=== PATIENT | male | born 1930 | race American Indian/Alaskan Native ===

== ENCOUNTER 2017-10-02 15:43 | Inpatient (IN) | payer MEDICARE, OTHER ==
[2017-10-02 15:43] VITALS: BMI 26.2
[2017-10-02 16:41] LABS: VENOUS BLOOD GAS BASE EXCESS 2.6 mmol/L (0.0-2.0); VENOUS BLOOD GAS PCO2 41 mmHg (40-60); VENOUS BLOOD GAS PO2 56 mm/Hg (30-55); VENOUS BLOOD PH 7.43 (7.32-7.43)
[2017-10-02 16:44] LABS: BASO % 0.3 % (0.0-2.0); EOS # 0.1 K/uL (0.0-0.7); EOS % 1.1 % (0.0-4.0); HEMOGLOBIN 13.2 g/dL (12.0-18.0); LYMPH # 1.1 K/uL (1.0-4.3); LYMPH % 8.8 % (20.0-40.0); MEAN CORPUSCULAR HGB CONC 33.8 g/dL (33.0-37.0); MEAN PLATELET VOLUME 8.2 fL (7.2-11.7); MONO # 0.5 K/uL (0.0-0.8); MONO % 4.5 % (0.0-10.0); NEUT # 10.5 K/uL (1.8-7.0); NEUT % 85.3 % (50.0-75.0); NRBC % 0.1 % (0.0-2.0); PLATELET COUNT 92 K/uL (130-400); RBC 4.25 Mil/uL (4.40-5.90); RED CELL DISTRIBUTION WIDTH 13.3 % (11.5-14.5)
[2017-10-02 16:47] LABS: WHITE BLOOD COUNT 12.3 K/uL (4.8-10.8)
[2017-10-02 16:48] LABS: MEAN CELL VOLUME 91.6 fL (80.0-94.0)
[2017-10-02 16:54] LABS: CALCIUM 9.1 mg/dl (8.6-10.4); GFR AFRICAN-AMERICAN > 60; GFR NON-AFRICAN AMERICAN > 60
--- NOTE | 2017-10-02 17:04 | RAD ---
HISTORY: chest pain COMPARISON: Chest x-ray performed 12/24/14 TECHNIQUE: Chest, one view. FINDINGS: Examination limited by habitus. LUNGS: Right hilar prominence. Upper lobe granulomatous changes. Mild pulmonary venous congestion. Please note that chest x-ray has limited sensitivity for the detection of pulmonary masses. PLEURA: No significant pleural effusion identified. No definite pneumothorax . CARDIOVASCULAR: Marked enlargement of the cardiac silhouette may reflect cardiomegaly or pericardial effusion. OSSEOUS STRUCTURES: Degenerative changes. Osseous demineralization. VISUALIZED UPPER ABDOMEN: Unremarkable. OTHER FINDINGS: None. IMPRESSION: Marked enlargement of the cardiac silhouette may reflect cardiomegaly or pericardial effusion. Correlate clinically. Right hilar prominence. Upper lobe granulomatous changes. Mild pulmonary venous congestion.
--- NOTE | 2017-10-02 17:09 | C.PDOC ---
History Of Present Illness 87 y/o male brought to ED by his daughter. Daughter reports patient has not been feeling well all day and experienced minimal PO intake. Pt took all his medications this morning. Daughter also reports that today pt was coughing with phlegm. Patient denies fever, headache, chest pain, SOB or any other pain. Chief Complaint (Nursing): Weakness/Neurological Deficit History Per: Patient, Family (daughter) History/Exam Limitations: no limitations Onset/Duration Of Symptoms: Hrs Current Symptoms Are (Timing): Still Present Seizure Or Post-ictal Symptoms: None Fall Associated With With Symptoms: No Recent travel outside of the [place]: No - Symptoms Of CVA Associated Symptoms: denies: Impaired Speech, Seizure Activity, New Vision Deficit(Left), New Vision Deficit(Right), Decreased Ability To Walk, New Confusion Recent Head Trauma: No Past Medical History Reviewed: Historical Data, Nursing Documentation, Vital Signs Vital Signs: Last Vital Signs Temp 98 F 10/02/17 23:05 Pulse 79 10/02/17 23:05 Resp 18 10/02/17 23:05 BP 150/86 10/02/17 23:05 Pulse Ox 98 10/02/17 23:05 - Medical History PMH: Arthritis, Atrial Fibrillation, Benign Prostatic Hyperplasia, CHF, Diverticulitis, HTN, Hypercholesterolemia, Chronic Kidney Disease - [facility] Procedures CATARAC PHACOEMULS/ASPIR (08/17/13) COLONOSCOPY (12/09/13) CORONAR ARTERIOGR-2 CATH (09/08/02) ENDOSCOP DEST OF OTH LESION OR TISU OF LRG INTESTN (12/09/13) INSERT LENS AT CATAR EXT (08/17/13) LEFT HEART CARDIAC CATH (09/08/02) LT HEART ANGIOCARDIOGRAM (09/08/02) OTHER LOCAL DESTRUC SKIN (01/12/13) PACKED CELL TRANSFUSION (12/09/13) SERUM TRANSFUSION NEC (12/09/13) TETANUS TOXOID ADMINIST (12/24/14) VACCINATION NEC (12/09/13) Family History: States: No Known Family Hx - Social History Hx Tobacco Use: Yes Hx Alcohol Use: No Hx Substance Use: No - Immunization History Hx Tetanus Toxoid Vaccination: No Hx Influenza Vaccination: Yes (04/2014) Hx Pneumococcal Vaccination: Yes (2016) Review Of Systems Constitutional: Positive for: Weakness. Negative for: Fever, Chills Cardiovascular: Negative for: Chest Pain, Palpitations Respiratory: Positive for: Cough (with phlegm ). Negative for: Shortness of Breath Gastrointestinal: Positive for: Other (minimal PO intake ). Negative for: Nausea, Vomiting, Abdominal Pain, Diarrhea Neurological: Negative for: Weakness, Numbness Physical Exam - Physical Exam Appears: Non-toxic, Other (thin) Skin: Normal Color, Warm, Dry Head: Atraumatic, Normacephalic Eye(s): bilateral: Normal Inspection Oral Mucosa: Moist Neck: Supple Chest: Symmetrical, No Tenderness Cardiovascular: Rhythm Irregular Respiratory: No Decreased Breath Sounds, No Rales, Rhonchi (bilaterally; left greater than right ), No Wheezing Gastrointestinal/Abdominal: Soft, No Tenderness, No Distention, No Guarding, No Rebound Extremity: Normal ROM, No Tenderness, No Pedal Edema, No Calf Tenderness Extremity: Bilateral: Normal Color And Temperature, Normal ROM Neurological/Psych: Oriented x3, Normal Speech, Normal Cognition, Other (no focal deficits) ED Course And Treatment - Laboratory Results Result Diagrams: 10/02/17 16:36 10/02/17 16:36 O2 Sat by Pulse Oximetry: 80 (RA) - Other Rad CXR X-Ray: Viewed By Me, Read By Radiologist Interpretation: HISTORY: chest pain. COMPARISON: Chest x-ray performed . TECHNIQUE: Chest, one view. FINDINGS: Examination limited by habitus. LUNGS: Right hilar prominence. Upper lobe granulomatous changes. Mild pulmonary venous congestion. Please note that chest x-ray has limited sensitivity for the detection of pulmonary masses. PLEURA: No significant pleural effusion identified. No definite pneumothorax . CARDIOVASCULAR: Marked enlargement of the cardiac silhouette may reflect cardiomegaly or pericardial effusion. OSSEOUS STRUCTURES: Degenerative changes. Osseous demineralization. VISUALIZED UPPER ABDOMEN: Unremarkable. OTHER FINDINGS: None. IMPRESSION: Marked enlargement of the cardiac silhouette may reflect cardiomegaly or pericardial effusion. Correlate clinically. Right hilar prominence. Upper lobe granulomatous changes. Mild pulmonary venous congestion. Progress Note: Spoke with about patient and reviewd all findings including the elevated troponin. Pt is placed on antibiotics, asprin, lasix, and heparin drip. Pt is readmitted to telemetry unit. Family is aware. Critical Care Time - Critical Care Note Total Time (in mins): 45 Documented critical care: time excludes all time spent performing seperately billable procedures. Medical Decision Making Medical Decision Making: Ordered VBG, EKG, blood work, CXR, blood culture, flu AB swab, and urinalysis. Administered Tylenol. EKG result: Afib at 79 bpm LAFB Disposition - Disposition Disposition: HOSPITALIZED Disposition Time: 17:15 Condition: GUARDED - Clinical Impression Clinical Impression: Community acquired pneumonia, NSTEMI (non-ST elevated myocardial infarction) - Scribe Statement The provider has reviewed the documentation as recorded by the Scriballen Matute All medical record entries made by the Scribe were at my direction and personally dictated by me. I have reviewed the chart and agree that the record accurately reflects my personal performance of the history, physical exam, medical decision making, and the department course for this patient. I have also personally directed, reviewed, and agree with the discharge instructions and disposition.
[2017-10-02 17:12] LABS: ALB/GLOB RATIO 0.9 (1.0-2.1); ALT/SGPT 20 U/L (21-72); AST/SGOT 54 U/L (17-59); B-TYPE NATRIURETIC PEPTIDE 4400 pg/mL (0-900); BLOOD UREA NITROGEN 22 mg/dL (9-20)
[2017-10-02] MEDS ORDERED: Azithromycin 500 MG in Sodium Chloride 0.9% 250 ML IVPB STA (17:30)
[2017-10-02] MEDS ORDERED: Heparin25000 units/250ml 1/2NS 25,000 UNITS/250 ML BAG IV ONE (17:31)
[2017-10-02 18:28] LABS: BANDS 1 % (0-2); LYMPHOCYTE 10 % (20-40); MONOCYTE 1 % (0-10); NEUTROPHIL 88 % (50-75); TOTAL CELLS COUNTED 100
[2017-10-02 18:29] LABS: PLATELET ESTIMATE DECREASED (NORMAL)
[2017-10-02] MEDS ORDERED: Nitroglycerin 2% Ointment Foilpak UD TOP PRN (18:46)
[2017-10-02] MEDS ORDERED: cefTRIAXone IV 1 gm in Dextros 50 ML IVPB ONE (18:48)
[2017-10-02 18:57] LABS: INR 1.4; PROTHROMBIN TIME 16.2 SECONDS (9.7-12.2)
[2017-10-02] MEDS ORDERED: cefTRIAXone IV 1 gm in Dextros 50 ML IVPB STA (19:03)
[2017-10-02 19:06] LABS: SQUAMOUS EPITHIAL < 1 /hpf (0-5); URINE BACTERIA RARE (<OCC); URINE BILIRUBIN NEGATIVE (NEGATIVE); URINE BLOOD 3+ (NEGATIVE); URINE CLARITY Hazy (Clear); URINE COLOR Yellow (YELLOW); URINE GLUCOSE (UA) NORMAL (Normal); URINE LEUKOCYTE ESTERASE NEG Leu/uL (Negative); URINE NITRATE NEGATIVE (NEGATIVE); URINE PROTEIN 3+ mg/dL (NEGATIVE); URINE UROBILINOGEN NORMAL mg/dL (0.2-1.0)
[2017-10-02] MEDS ORDERED: Heparin25000 units/250ml 1/2NS 25,000 UNITS/250 ML BAG IV PRN (19:13)
--- NOTE | 2017-10-02 22:04 | CP.PCM.CON ---
History of Present Illness - History of Present Illness History of Present Illness: 87 y/o male with h/o Atrial Fibrillation, CHF, Diverticulitis, HTN, Hypercholesterolemia, Benign Prostatic Hyperplasia,arthritis brought to ED by his daughter. patient had fallen coming down stairs yesterday and has been feeling weak since then with poor oral intake.patient c/o cough with phlegm but denies difficulty breathing or chest pain.He states that he had a fever yesterday.Denies chills. Pt took all his medications this morning. In ER troponin level elevated at 1.8,started on IV heparin history from patient and chart L Review of Systems - Constitutional Constitutional: Fatigue, Fever, Weakness. absent: Chills - EENT Eyes: absent: Discharge, Itchy Eyes Nose/Mouth/Throat: absent: Nasal Congestion, Sore Throat, Neck Pain - Cardiovascular Cardiovascular: absent: Chest Pain, Dyspnea, Edema, Palpitations, Rapid Heart Rate, Syncope - Respiratory Respiratory: Cough, Excessive Mucous Production. absent: Dyspnea, Wheezing - Gastrointestinal Gastrointestinal: absent: Abdominal Pain, Change in Bowel Habits, Nausea, Vomiting - Genitourinary Genitourinary: absent: Urinary Frequency - Musculoskeletal Musculoskeletal: absent: Numbness, Radiating Pain into Limb - Integumentary Integumentary: absent: Pruritus, Rash - Neurological Neurological: absent: Abnormal Movements, Headaches, Tremor - Endocrine Endocrine: absent: Polydipsia, Polyuria - Hematologic/Lymphatic Hematologic: absent: Easy Bleeding Past Patient History - Infectious Disease Hx of Infectious Diseases: None - Past Medical History & Family History Past Medical History?: Yes - Past Social History Smoking Status: Heavy Smoker > 10 Cigarettes Daily Drugs: Denies Home Situation {Lives}: With Family - CARDIAC Hx Atrial Fibrillation: Yes Hx Congestive Heart Failure: Yes Hx Hypercholesterolemia: Yes Hx Hypertension: Yes - PULMONARY Hx Respiratory Disorders: No - HEENT Hx Cataracts: Yes (left eye surgery 2012) - RENAL Hx Chronic Kidney Disease: Yes - MUSCULOSKELETAL/RHEUMATOLOGICAL Hx Arthritis: Yes - GASTROINTESTINAL Hx Diverticulitis: Yes - GENITOURINARY/GYNECOLOGICAL Hx Urinary Tract Infection: Yes Other/Comment: BPH - PSYCHIATRIC Hx Substance Use: No - SURGICAL HISTORY Hx Cataract Extraction: Yes (2012) Hx Cardiac Catheterization: Yes (2002) - ANESTHESIA Hx Anesthesia: Yes Hx Anesthesia Reactions: No Meds Allergies/Adverse Reactions: Allergies Allergy/AdvReac Type Severity Reaction Status Date / Time No Known Allergies Allergy Verified 10/02/17 16:09 - Medications Medications: Current Medications Aspirin (Ecotrin) 325 mg PO DAILY TANVIR Carvedilol (Coreg) 6.25 mg PO BID TANVIR Furosemide (Lasix) 40 mg IVP Q12 [facility] Heparin Sodium/Sodium Chloride (Heparin 59488 Units/250ml 1/2 Normal Saline) 25 ,000 units in 250 mls @ 8.655 mls/hr IV .Q24H PRN; 12 UNITS/KG/HR PRN Reason: Protocol Losartan Potassium (Cozaar) 50 mg PO DAILY [facility] Nitroglycerin (Nitro-Bid 2% Oint) 1 ea TOP Q6 PRN PRN Reason: chest pain Physical Exam - Constitutional Appears: Non-toxic, No Acute Distress - Head Exam Head Exam: ATRAUMATIC, NORMAL INSPECTION, NORMOCEPHALIC - Eye Exam Eye Exam: EOMI, PERRL. absent: Periorbital swelling, Scleral icterus Pupil Exam: NORMAL ACCOMODATION - ENT Exam ENT Exam: Mucous Membranes Moist, Normal Exam - Neck Exam Neck exam: Positive for: Normal Inspection. Negative for: Lymphadenopathy - Respiratory Exam Respiratory Exam: NORMAL BREATHING PATTERN. absent: Accessory Muscle Use, Chest Wall Tenderness, Rales, Rhonchi, Wheezes Additional comments: decreased air entry in bases - Cardiovascular Exam Cardiovascular Exam: Irregular Rhythm, Systolic Murmur. absent: JVD - GI/Abdominal Exam GI & Abdominal Exam: Normal Bowel Sounds, Soft. absent: Distended, Tenderness - Rectal Exam Rectal Exam: Deferred - Extremities Exam Extremities exam: Negative for: calf tenderness Additional comments: bilateral trace lower leg edema - Back Exam Back exam: NORMAL INSPECTION - Neurological Exam Neurological exam: Oriented x3 - Skin Skin Exam: Intact, Normal Color, Warm Results - Vital Signs Recent Vital Signs: Last Vital Signs Temp 98.6 F 10/02/17 21:05 Pulse 87 10/02/17 21:05 Resp 22 10/02/17 21:05 BP 151/87 H 10/02/17 21:05 Pulse Ox 92 L 10/02/17 21:05 - Labs Result Diagrams: 10/02/17 16:36 10/02/17 16:36 Labs: Laboratory Results - last 24 hr 10/02/17 10/02/17 10/02/17 16:29 16:36 16:36 WBC 12.3 H D RBC 4.25 L Hgb 13.2 Hct 38.9 MCV 91.6 D MCH 31.0 MCHC 33.8 RDW 13.3 Plt Count 92 L MPV 8.2 Neut % (Auto) 85.3 H Lymph % (Auto) 8.8 L [place] % (Auto) 4.5 Eos % (Auto) 1.1 Baso % (Auto) 0.3 Neut # (Auto) 10.5 H Lymph # (Auto) 1.1 [place] # (Auto) 0.5 Eos # (Auto) 0.1 Baso # (Auto) 0.0 Neutrophils % (Manual) 88 H Band Neutrophils % 1 Lymphocytes % (Manual) 10 L Monocytes % (Manual) 1 Platelet Estimate Decreased L PT INR APTT pO2 VBG pH VBG pCO2 VBG HCO3 VBG Total CO2 VBG O2 Sat (Calc) VBG Base Excess VBG Potassium Glucose Lactate Sodium 137 Potassium 4.3 Chloride 100 Carbon Dioxide 29 Anion Gap 13 BUN 22 H Creatinine 0.9 Est GFR ( Amer) > 60 Est GFR (Non-Af Amer) > 60 POC Glucose (mg/dL) Random Glucose 104 Calcium 9.1 Total Bilirubin 2.5 H AST 54 ALT 20 L D Alkaline Phosphatase 52 Troponin I 1.8100 H* NT-Pro-B Natriuret Pep 4400 H Total Protein 8.6 H Albumin 4.0 Globulin 4.6 H Albumin/Globulin Ratio 0.9 L Venous Blood Potassium Urine Color Urine Clarity Urine pH Ur Specific [place] Urine Protein Urine Glucose (UA) Urine Ketones Urine Blood Urine Nitrate Urine Bilirubin Urine Urobilinogen Ur Leukocyte Esterase Urine WBC (Auto) Urine RBC (Auto) Ur Squamous Epith Cells Urine Bacteria Influenza Typ A,B (EIA) Negative for flu a/b Blood Type Antibody Screen 10/02/17 10/02/17 10/02/17 16:36 16:38 18:45 WBC RBC Hgb Hct MCV MCH MCHC RDW Plt Count MPV Neut % (Auto) Lymph % (Auto) [place] % (Auto) Eos % (Auto) Baso % (Auto) Neut # (Auto) Lymph # (Auto) [place] # (Auto) Eos # (Auto) Baso # (Auto) Neutrophils % (Manual) Band Neutrophils % Lymphocytes % (Manual) Monocytes % (Manual) Platelet Estimate PT 16.2 H INR 1.4 APTT 31 pO2 56 H VBG pH 7.43 VBG pCO2 41 VBG HCO3 26.7 VBG Total CO2 28.5 H VBG O2 Sat (Calc) 92.1 H VBG Base Excess 2.6 H VBG Potassium 2.8 L Glucose 96 Lactate 1.2 Sodium 143.0 Potassium Chloride 112.0 H Carbon Dioxide Anion Gap BUN Creatinine Est GFR ( Amer) Est GFR (Non-Af Amer) POC Glucose (mg/dL) 106 Random Glucose Calcium Total Bilirubin AST ALT Alkaline Phosphatase Troponin I NT-Pro-B Natriuret Pep Total Protein Albumin Globulin Albumin/Globulin Ratio Venous Blood Potassium 2.8 L Urine Color Urine Clarity Urine pH Ur Specific [place] Urine Protein Urine Glucose (UA) Urine Ketones Urine Blood Urine Nitrate Urine Bilirubin Urine Urobilinogen Ur Leukocyte Esterase Urine WBC (Auto) Urine RBC (Auto) Ur Squamous Epith Cells Urine Bacteria Influenza Typ A,B (EIA) Blood Type Antibody Screen 10/02/17 10/02/17 18:45 19:06 WBC RBC Hgb Hct MCV MCH MCHC RDW Plt Count MPV Neut % (Auto) Lymph % (Auto) [place] % (Auto) Eos % (Auto) Baso % (Auto) Neut # (Auto) Lymph # (Auto) [place] # (Auto) Eos # (Auto) Baso # (Auto) Neutrophils % (Manual) Band Neutrophils % Lymphocytes % (Manual) Monocytes % (Manual) Platelet Estimate PT INR APTT pO2 VBG pH VBG pCO2 VBG HCO3 VBG Total CO2 VBG O2 Sat (Calc) VBG Base Excess VBG Potassium Glucose Lactate Sodium Potassium Chloride Carbon Dioxide Anion Gap BUN Creatinine Est GFR ( Amer) Est GFR (Non-Af Amer) POC Glucose (mg/dL) Random Glucose Calcium Total Bilirubin AST ALT Alkaline Phosphatase Troponin I NT-Pro-B Natriuret Pep Total Protein Albumin Globulin Albumin/Globulin Ratio Venous Blood Potassium Urine Color Yellow Urine Clarity Hazy Urine pH 5.0 Ur Specific [place] 1.022 Urine Protein 3+ H Urine Glucose (UA) Normal Urine Ketones Trace Urine Blood 3+ H Urine Nitrate Negative Urine Bilirubin Negative Urine Urobilinogen Normal Ur Leukocyte Esterase Neg Urine WBC (Auto) 1 Urine RBC (Auto) 45 H Ur Squamous Epith Cells < 1 Urine Bacteria Rare Influenza Typ A,B (EIA) Blood Type O POSITIVE Antibody Screen Negative - EKG Data EKG Interpreted by: Myself Rate: Normal - EKG Data EKG comments: atrial fibrillation,IRBB,Q in anterolateral leads - Imaging and Cardiology Chest x-ray Status: Image reviewed by me, Report reviewed by me Assessment & Plan - Assessment and Plan (Free Text) Assessment: 1.NSTEMI/CHF on IV heparin,nitrates,aspirin,betablocker f/u with repeat troponin ECHO 2.HTN- on meds 3.h/o Hyperlipidemia-fasting labs not on meds 4.Atrial fibrillation ,rate controlled 5.Arthritis-analgesics PRN 6.BPH on flomax 7.Leucocytosis and fever-r/o pneumonia sputum culture on IV antibiotics f/u blood cultures.LA normal range 8.Thrombocytopenia on IV heparin.monitor platelets 9.Hematuria-rpt UA nitrites and Leucocyte esterase negative Patient will be monitored in telemetry
[2017-10-02 23:35] LABS: CK-MB 4.23 ng/mL (0.0-3.38); TROPONIN I 2.29 ng/mL (0.00-0.120)
[2017-10-03 00:32] LABS: SQUAMOUS EPITHIAL < 1 /hpf (0-5); URINE BILIRUBIN NEGATIVE (NEGATIVE); URINE BLOOD 2+ (NEGATIVE); URINE CLARITY Clear (Clear); URINE COLOR Straw (YELLOW); URINE GLUCOSE (UA) NORMAL (Normal); URINE HYALINE CAST 0-2 /lpf (0-2); URINE LEUKOCYTE ESTERASE NEG Leu/uL (Negative); URINE NITRATE NEGATIVE (NEGATIVE); URINE PROTEIN 1+ mg/dL (NEGATIVE); URINE UROBILINOGEN NORMAL mg/dL (0.2-1.0)
[2017-10-03 06:29] LABS: BASO % 0.4 % (0.0-2.0); EOS # 0.6 K/uL (0.0-0.7); EOS % 4.8 % (0.0-4.0); HEMOGLOBIN 13.1 g/dL (12.0-18.0); LYMPH # 1.6 K/uL (1.0-4.3); LYMPH % 12.5 % (20.0-40.0); MEAN CELL VOLUME 92.3 fL (80.0-94.0); MEAN CORPUSCULAR HEMOGLOBIN 30.7 pg (27.0-31.0); MEAN CORPUSCULAR HGB CONC 33.3 g/dL (33.0-37.0); MEAN PLATELET VOLUME 8.3 fL (7.2-11.7); MONO # 0.7 K/uL (0.0-0.8); MONO % 5.3 % (0.0-10.0); NEUT # 9.8 K/uL (1.8-7.0); RBC 4.25 Mil/uL (4.40-5.90); RED CELL DISTRIBUTION WIDTH 13.5 % (11.5-14.5); WHITE BLOOD COUNT 12.7 K/uL (4.8-10.8)
[2017-10-03 06:46] LABS: ALB/GLOB RATIO 0.8 (1.0-2.1); ALBUMIN 3.5 g/dL (3.5-5.0); ALT/SGPT 26 U/L (21-72); AST/SGOT 47 U/L (17-59); BLOOD UREA NITROGEN 21 mg/dL (9-20); CALCIUM 8.8 mg/dl (8.6-10.4); GFR AFRICAN-AMERICAN > 60; GFR NON-AFRICAN AMERICAN > 60; HDL CHOLESTEROL 41 mg/dL (30-70); MAGNESIUM 1.7 mg/dL (1.6-2.3)
[2017-10-03 06:56] LABS: LDL CHOLESTEROL 57 mg/dL (0-129)
--- NOTE | 2017-10-03 07:52 | CP.PCM.CON ---
History of Present Illness - History of Present Illness History of Present Illness: 87 y/o male with h/o Atrial Fibrillation, CHF, Diverticulitis, HTN, Hypercholesterolemia, Benign Prostatic Hyperplasia,arthritis brought to ED by his daughter. patient had fallen coming down stairs yesterday and has been feeling weak since then with poor oral intake.patient c/o cough with phlegm but denies difficulty breathing or chest pain.He states that he had a fever yesterday.Denies chills. Pt took all his medications this morning. In ER troponin level elevated at 1.8,started on IV heparin Patient at present denies chest pain and dyspnea L Review of Systems - Constitutional Constitutional: Fatigue, Fever, Weakness. absent: Chills - EENT Eyes: absent: Discharge, Itchy Eyes Nose/Mouth/Throat: absent: Nasal Congestion, Sore Throat, Neck Pain - Cardiovascular Cardiovascular: absent: Chest Pain, Dyspnea, Edema, Palpitations, Rapid Heart Rate, Syncope - Respiratory Respiratory: Cough, Excessive Mucous Production. absent: Dyspnea, Wheezing - Gastrointestinal Gastrointestinal: absent: Abdominal Pain, Change in Bowel Habits, Nausea, Vomiting - Genitourinary Genitourinary: absent: Urinary Frequency - Musculoskeletal Musculoskeletal: absent: Numbness, Radiating Pain into Limb - Integumentary Integumentary: absent: Pruritus, Rash - Neurological Neurological: absent: Abnormal Movements, Headaches, Tremor - Endocrine Endocrine: absent: Polydipsia, Polyuria - Hematologic/Lymphatic Hematologic: absent: Easy Bleeding Physical Exam - Constitutional Appears: Non-toxic, No Acute Distress - Head Exam Head Exam: ATRAUMATIC, NORMAL INSPECTION, NORMOCEPHALIC - Eye Exam Eye Exam: EOMI, PERRL. absent: Periorbital swelling, Scleral icterus Pupil Exam: NORMAL ACCOMODATION - ENT Exam ENT Exam: Mucous Membranes Moist, Normal Exam - Neck Exam Neck exam: Positive for: Normal Inspection. Negative for: Lymphadenopathy - Respiratory Exam Respiratory Exam: NORMAL BREATHING PATTERN. absent: Accessory Muscle Use, Chest Wall Tenderness, Rales, Rhonchi, Wheezes Additional comments: decreased air entry in bases - Cardiovascular Exam Cardiovascular Exam: Irregular Rhythm, Systolic Murmur. absent: JVD - GI/Abdominal Exam GI & Abdominal Exam: Normal Bowel Sounds, Soft. absent: Distended, Tenderness - Rectal Exam Rectal Exam: Deferred - Extremities Exam Extremities exam: Negative for: calf tenderness Additional comments: bilateral trace lower leg edema - Back Exam Back exam: NORMAL INSPECTION - Neurological Exam Neurological exam: Oriented x3 - Skin Skin Exam: Intact, Normal Color, Warm Past Patient History - Infectious Disease Hx of Infectious Diseases: None - Past Medical History & Family History Past Medical History?: Yes - Past Social History Smoking Status: Former Smoker - CARDIAC Hx Atrial Fibrillation: Yes Hx Congestive Heart Failure: Yes Hx Hypercholesterolemia: Yes Hx Hypertension: Yes - PULMONARY Hx Respiratory Disorders: No - HEENT Hx Cataracts: Yes (left eye surgery 2012) - RENAL Hx Chronic Kidney Disease: Yes - MUSCULOSKELETAL/RHEUMATOLOGICAL Hx Arthritis: Yes - GASTROINTESTINAL Hx Diverticulitis: Yes - GENITOURINARY/GYNECOLOGICAL Hx Urinary Tract Infection: Yes Other/Comment: BPH - PSYCHIATRIC Hx Substance Use: No - SURGICAL HISTORY Hx Cataract Extraction: Yes (2012) Hx Cardiac Catheterization: Yes (2002) - ANESTHESIA Hx Anesthesia: Yes Hx Anesthesia Reactions: No Hx Malignant Hyperthermia: No Has any member of the family had a problem w/ anesthesia?: No Meds Allergies/Adverse Reactions: Allergies Allergy/AdvReac Type Severity Reaction Status Date / Time No Known Allergies Allergy Verified 10/02/17 16:09 - Medications Medications: Current Medications Amlodipine Besylate (Norvasc) 10 mg PO DAILY [facility] Last Admin: 10/03/17 05:07 Dose: 10 mg Aspirin (Ecotrin) 325 mg PO DAILY [facility] Carvedilol (Coreg) 12.5 mg PO BID [facility] Furosemide (Lasix) 40 mg IVP Q12 [facility] Heparin Sodium/Sodium Chloride (Heparin 98830 Units/250ml 1/2 Normal Saline) 25 ,000 units in 250 mls @ 8.655 mls/hr IV .Q24H PRN; 12 UNITS/KG/HR PRN Reason: Protocol Losartan Potassium (Cozaar) 50 mg PO DAILY [facility] Nitroglycerin (Nitro-Bid 2% Oint) 1 ea TOP Q6 PRN PRN Reason: chest pain Last Admin: 10/03/17 02:57 Dose: 1 ea Tamsulosin HCl (Flomax) 0.4 mg PO DAILY [facility] Results - Vital Signs Recent Vital Signs: Last Vital Signs Temp 98.2 F 10/03/17 06:00 Pulse 87 10/03/17 06:00 Resp 18 10/03/17 06:00 BP 179/115 H 10/03/17 06:00 Pulse Ox 100 10/03/17 06:00 - Labs Result Diagrams: 10/03/17 06:23 10/03/17 06:23 Labs: Laboratory Results - last 24 hr 10/02/17 10/02/17 10/02/17 16:29 16:36 16:36 WBC 12.3 H D RBC 4.25 L Hgb 13.2 Hct 38.9 MCV 91.6 D MCH 31.0 MCHC 33.8 RDW 13.3 Plt Count 92 L MPV 8.2 Neut % (Auto) 85.3 H Lymph % (Auto) 8.8 L [place] % (Auto) 4.5 Eos % (Auto) 1.1 Baso % (Auto) 0.3 Neut # (Auto) 10.5 H Lymph # (Auto) 1.1 [place] # (Auto) 0.5 Eos # (Auto) 0.1 Baso # (Auto) 0.0 Neutrophils % (Manual) 88 H Band Neutrophils % 1 Lymphocytes % (Manual) 10 L Monocytes % (Manual) 1 Platelet Estimate Decreased L PT INR APTT pO2 VBG pH VBG pCO2 VBG HCO3 VBG Total CO2 VBG O2 Sat (Calc) VBG Base Excess VBG Potassium Glucose Lactate Sodium 137 Potassium 4.3 Chloride 100 Carbon Dioxide 29 Anion Gap 13 BUN 22 H Creatinine 0.9 Est GFR ( Amer) > 60 Est GFR (Non-Af Amer) > 60 POC Glucose (mg/dL) Random Glucose 104 Calcium 9.1 Phosphorus Magnesium Total Bilirubin 2.5 H AST 54 ALT 20 L D Alkaline Phosphatase 52 Total Creatine Kinase CK-MB (Mass) Troponin I 1.8100 H* NT-Pro-B Natriuret Pep 4400 H Total Protein 8.6 H Albumin 4.0 Globulin 4.6 H Albumin/Globulin Ratio 0.9 L Triglycerides Cholesterol LDL Cholesterol Direct HDL Cholesterol Venous Blood Potassium Urine Color Urine Clarity Urine pH Ur Specific [place] Urine Protein Urine Glucose (UA) Urine Ketones Urine Blood Urine Nitrate Urine Bilirubin Urine Urobilinogen Ur Leukocyte Esterase Urine WBC (Auto) Urine RBC (Auto) Ur Squamous Epith Cells Urine Bacteria Hyaline Casts Influenza Typ A,B (EIA) Negative for flu a/b Blood Type Antibody Screen 10/02/17 10/02/17 10/02/17 16:36 16:38 18:45 WBC RBC Hgb Hct MCV MCH MCHC RDW Plt Count MPV Neut % (Auto) Lymph % (Auto) [place] % (Auto) Eos % (Auto) Baso % (Auto) Neut # (Auto) Lymph # (Auto) [place] # (Auto) Eos # (Auto) Baso # (Auto) Neutrophils % (Manual) Band Neutrophils % Lymphocytes % (Manual) Monocytes % (Manual) Platelet Estimate PT 16.2 H INR 1.4 APTT 31 pO2 56 H VBG pH 7.43 VBG pCO2 41 VBG HCO3 26.7 VBG Total CO2 28.5 H VBG O2 Sat (Calc) 92.1 H VBG Base Excess 2.6 H VBG Potassium 2.8 L Glucose 96 Lactate 1.2 Sodium 143.0 Potassium Chloride 112.0 H Carbon Dioxide Anion Gap BUN Creatinine Est GFR ( Amer) Est GFR (Non-Af Amer) POC Glucose (mg/dL) 106 Random Glucose Calcium Phosphorus Magnesium Total Bilirubin AST ALT Alkaline Phosphatase Total Creatine Kinase CK-MB (Mass) Troponin I NT-Pro-B Natriuret Pep Total Protein Albumin Globulin Albumin/Globulin Ratio Triglycerides Cholesterol LDL Cholesterol Direct HDL Cholesterol Venous Blood Potassium 2.8 L Urine Color Urine Clarity Urine pH Ur Specific [place] Urine Protein Urine Glucose (UA) Urine Ketones Urine Blood Urine Nitrate Urine Bilirubin Urine Urobilinogen Ur Leukocyte Esterase Urine WBC (Auto) Urine RBC (Auto) Ur Squamous Epith Cells Urine Bacteria Hyaline Casts Influenza Typ A,B (EIA) Blood Type Antibody Screen 10/02/17 10/02/17 10/02/17 18:45 19:06 23:05 WBC RBC Hgb Hct MCV MCH MCHC RDW Plt Count MPV Neut % (Auto) Lymph % (Auto) [place] % (Auto) Eos % (Auto) Baso % (Auto) Neut # (Auto) Lymph # (Auto) [place] # (Auto) Eos # (Auto) Baso # (Auto) Neutrophils % (Manual) Band Neutrophils % Lymphocytes % (Manual) Monocytes % (Manual) Platelet Estimate PT INR APTT pO2 VBG pH VBG pCO2 VBG HCO3 VBG Total CO2 VBG O2 Sat (Calc) VBG Base Excess VBG Potassium Glucose Lactate Sodium Potassium Chloride Carbon Dioxide Anion Gap BUN Creatinine Est GFR ( Amer) Est GFR (Non-Af Amer) POC Glucose (mg/dL) Random Glucose Calcium Phosphorus Magnesium Total Bilirubin AST ALT Alkaline Phosphatase Total Creatine Kinase 197 H CK-MB (Mass) 4.23 H Troponin I 2.2900 H* NT-Pro-B Natriuret Pep Total Protein Albumin Globulin Albumin/Globulin Ratio Triglycerides Cholesterol LDL Cholesterol Direct HDL Cholesterol Venous Blood Potassium Urine Color Yellow Urine Clarity Hazy Urine pH 5.0 Ur Specific [place] 1.022 Urine Protein 3+ H Urine Glucose (UA) Normal Urine Ketones Trace Urine Blood 3+ H Urine Nitrate Negative Urine Bilirubin Negative Urine Urobilinogen Normal Ur Leukocyte Esterase Neg Urine WBC (Auto) 1 Urine RBC (Auto) 45 H Ur Squamous Epith Cells < 1 Urine Bacteria Rare Hyaline Casts Influenza Typ A,B (EIA) Blood Type O POSITIVE Antibody Screen Negative 10/03/17 10/03/17 10/03/17 00:16 01:34 06:23 WBC RBC Hgb Hct MCV MCH MCHC RDW Plt Count MPV Neut % (Auto) Lymph % (Auto) [place] % (Auto) Eos % (Auto) Baso % (Auto) Neut # (Auto) Lymph # (Auto) [place] # (Auto) Eos # (Auto) Baso # (Auto) Neutrophils % (Manual) Band Neutrophils % Lymphocytes % (Manual) Monocytes % (Manual) Platelet Estimate PT INR APTT 69 H D pO2 VBG pH VBG pCO2 VBG HCO3 VBG Total CO2 VBG O2 Sat (Calc) VBG Base Excess VBG Potassium Glucose Lactate Sodium 141 Potassium 3.4 L Chloride 98 Carbon Dioxide 34 H Anion Gap 13 BUN 21 H Creatinine 0.9 Est GFR ( Amer) > 60 Est GFR (Non-Af Amer) > 60 POC Glucose (mg/dL) Random Glucose 85 Calcium 8.8 Phosphorus 3.2 Magnesium 1.7 Total Bilirubin 1.7 H AST 47 ALT 26 Alkaline Phosphatase 56 Total Creatine Kinase CK-MB (Mass) Troponin I NT-Pro-B Natriuret Pep Total Protein 8.0 Albumin 3.5 Globulin 4.5 H Albumin/Globulin Ratio 0.8 L Triglycerides 42 Cholesterol 122 LDL Cholesterol Direct 57 HDL Cholesterol 41 Venous Blood Potassium Urine Color Straw Urine Clarity Clear Urine pH 5.0 Ur Specific [place] 1.009 Urine Protein 1+ H Urine Glucose (UA) Normal Urine Ketones Negative Urine Blood 2+ H Urine Nitrate Negative Urine Bilirubin Negative Urine Urobilinogen Normal Ur Leukocyte Esterase Neg Urine WBC (Auto) < 1 Urine RBC (Auto) 20 H Ur Squamous Epith Cells < 1 Urine Bacteria Hyaline Casts 0-2 Influenza Typ A,B (EIA) Blood Type Antibody Screen 10/03/17 10/03/17 06:23 06:23 WBC 12.7 H RBC 4.25 L Hgb 13.1 Hct 39.2 MCV 92.3 MCH 30.7 MCHC 33.3 RDW 13.5 Plt Count 77 L MPV 8.3 Neut % (Auto) 77.0 H Lymph % (Auto) 12.5 L [place] % (Auto) 5.3 Eos % (Auto) 4.8 H Baso % (Auto) 0.4 Neut # (Auto) 9.8 H Lymph # (Auto) 1.6 [place] # (Auto) 0.7 Eos # (Auto) 0.6 Baso # (Auto) 0.0 Neutrophils % (Manual) Band Neutrophils % Lymphocytes % (Manual) Monocytes % (Manual) Platelet Estimate PT INR APTT pO2 VBG pH VBG pCO2 VBG HCO3 VBG Total CO2 VBG O2 Sat (Calc) VBG Base Excess VBG Potassium Glucose Lactate Sodium Potassium Chloride Carbon Dioxide Anion Gap BUN Creatinine Est GFR ( Amer) Est GFR (Non-Af Amer) POC Glucose (mg/dL) Random Glucose Calcium Phosphorus Magnesium Total Bilirubin AST ALT Alkaline Phosphatase Total Creatine Kinase 203 H CK-MB (Mass) Troponin I NT-Pro-B Natriuret Pep Total Protein Albumin Globulin Albumin/Globulin Ratio Triglycerides Cholesterol LDL Cholesterol Direct HDL Cholesterol Venous Blood Potassium Urine Color Urine Clarity Urine pH Ur Specific [place] Urine Protein Urine Glucose (UA) Urine Ketones Urine Blood Urine Nitrate Urine Bilirubin Urine Urobilinogen Ur Leukocyte Esterase Urine WBC (Auto) Urine RBC (Auto) Ur Squamous Epith Cells Urine Bacteria Hyaline Casts Influenza Typ A,B (EIA) Blood Type Antibody Screen Assessment & Plan - Assessment and Plan (Free Text) Assessment: 1. CAD and Non STEMI 2. A Fib 3. HTN 4. Diverticulosis with Hx of massive GI bleed Continue ASA and IV Heparin. D/W family and patient at bedside. Will continue to treat medically with possible option of cath and intervention Watch Hgb trends and bleeding signs. Check ECHO
[2017-10-03] MEDS: Pantoprazole 40 mg EC Tab PO SCH (09:29)
[2017-10-03] MEDS: Aspirin 325 mg EC Tablets PO SCH (09:30)
--- NOTE | 2017-10-03 19:41 | CP.PCM.HP ---
History of Present Illness - History of Present Illness History of Present Illness: Chief complaint: Fatigability HPI: 87-year-old male with a history of intermittent atrial fibrillation, congestive heart failure, diverticulosis, history of hypertension, hypercholesterolemia, BPH, arthritis. Patient has a history of massive GI bleed in 2016. Patient is currently not on any anticoagulation because of the GI bleed, currently taking aspirin. Patient is doing well. On the day of admission patient was trying to get down the basement, and he had a fall, but he is able to get up and came upstairs pain According to the patient's daughter and patient was having altered mental status , not responding very well, and lethargic, and the patient was immediately taken to the [facility] by the amylase. In the emergency room patient was somewhat lethargic, found to have congestive heart failure. He is also having some shortness of breath, and weakness. Past medical history: Intermittent atrial fibrillation, CHF, diverticulosis, hypertension, high cholesterol, BPH and arthritis. Allergies: No known drug allergy Personal history: Nonsmoker nonalcoholic lives with family Surgical history nonspecific. 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 Family is concerned about sundowning in the evening time. Minimal distress noted. Denies any chest pain. Leg swelling negative Vital signs reviewed No neck vein distention noted Chest good air entry bilaterally, no wheezing or rales noted CVS regular heart sound, no murmur noted Abdomen soft, nontender. 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 Now admitted with possible CHF exacerbation, and associated with non-ST elevation ischemia. Myocardial infarction. Cardiology evaluation. Antiplatelets, apparently. Will start the patient on beta jacob. Lipitor. Patient is a high risk for GI bleed. Will continue to monitor and will follow the patient. Present on Admission - Present on Admission Any Indicators Present on Admission: No History of DVT/PE: No History of Uncontrolled Diabetes: No Urinary Catheter: No Decubitus Ulcer Present: No Past Patient History - Infectious Disease Hx of Infectious Diseases: None - Past Medical History & Family History Past Medical History?: Yes - Past Social History Smoking Status: Former Smoker - CARDIAC Hx Atrial Fibrillation: Yes Hx Congestive Heart Failure: Yes Hx Hypercholesterolemia: Yes Hx Hypertension: Yes - PULMONARY Hx Respiratory Disorders: No - HEENT Hx Cataracts: Yes (left eye surgery 2012) - RENAL Hx Chronic Kidney Disease: Yes - MUSCULOSKELETAL/RHEUMATOLOGICAL Hx Arthritis: Yes - GASTROINTESTINAL Hx Diverticulitis: Yes - GENITOURINARY/GYNECOLOGICAL Hx Urinary Tract Infection: Yes Other/Comment: BPH - PSYCHIATRIC Hx Substance Use: No - SURGICAL HISTORY Hx Cataract Extraction: Yes (2012) Hx Cardiac Catheterization: Yes (2002) - ANESTHESIA Hx Anesthesia: Yes Hx Anesthesia Reactions: No Hx Malignant Hyperthermia: No Has any member of the family had a problem w/ anesthesia?: No Meds Allergies/Adverse Reactions: Allergies Allergy/AdvReac Type Severity Reaction Status Date / Time No Known Allergies Allergy Verified 10/02/17 16:09 Results - Vital Signs Recent Vital Signs: Last Vital Signs Temp 98.5 F 10/03/17 14:00 Pulse 65 10/03/17 14:00 Resp 24 10/03/17 14:00 BP 147/99 H 10/03/17 17:11 Pulse Ox 95 10/03/17 14:00 - Labs Result Diagrams: 10/03/17 06:23 10/03/17 06:23 Labs: Laboratory Results - last 24 hr 10/02/17 10/02/17 10/03/17 23:05 23:05 00:16 WBC RBC Hgb Hct MCV MCH MCHC RDW Plt Count MPV Neut % (Auto) Lymph % (Auto) [place] % (Auto) Eos % (Auto) Baso % (Auto) Neut # (Auto) Lymph # (Auto) [place] # (Auto) Eos # (Auto) Baso # (Auto) APTT Sodium Potassium Chloride Carbon Dioxide Anion Gap BUN Creatinine Est GFR ( Amer) Est GFR (Non-Af Amer) Random Glucose Calcium Phosphorus Magnesium Total Bilirubin AST ALT Alkaline Phosphatase Total Creatine Kinase 197 H CK-MB (Mass) 4.23 H Troponin I 2.2900 H* Total Protein Albumin Globulin Albumin/Globulin Ratio Triglycerides Cholesterol LDL Cholesterol Direct HDL Cholesterol Procalcitonin 0.35 Urine Color Straw Urine Clarity Clear Urine pH 5.0 Ur Specific [place] 1.009 Urine Protein 1+ H Urine Glucose (UA) Normal Urine Ketones Negative Urine Blood 2+ H Urine Nitrate Negative Urine Bilirubin Negative Urine Urobilinogen Normal Ur Leukocyte Esterase Neg Urine WBC (Auto) < 1 Urine RBC (Auto) 20 H Ur Squamous Epith Cells < 1 Hyaline Casts 0-2 10/03/17 10/03/17 10/03/17 01:34 06:23 06:23 WBC RBC Hgb Hct MCV MCH MCHC RDW Plt Count MPV Neut % (Auto) Lymph % (Auto) [place] % (Auto) Eos % (Auto) Baso % (Auto) Neut # (Auto) Lymph # (Auto) [place] # (Auto) Eos # (Auto) Baso # (Auto) APTT 69 H D Sodium 141 Potassium 3.4 L Chloride 98 Carbon Dioxide 34 H Anion Gap 13 BUN 21 H Creatinine 0.9 Est GFR ( Amer) > 60 Est GFR (Non-Af Amer) > 60 Random Glucose 85 Calcium 8.8 Phosphorus 3.2 Magnesium 1.7 Total Bilirubin 1.7 H AST 47 ALT 26 Alkaline Phosphatase 56 Total Creatine Kinase Cancelled CK-MB (Mass) Cancelled Troponin I Cancelled Total Protein 8.0 Albumin 3.5 Globulin 4.5 H Albumin/Globulin Ratio 0.8 L Triglycerides 42 Cholesterol 122 LDL Cholesterol Direct 57 HDL Cholesterol 41 Procalcitonin Urine Color Urine Clarity Urine pH Ur Specific [place] Urine Protein Urine Glucose (UA) Urine Ketones Urine Blood Urine Nitrate Urine Bilirubin Urine Urobilinogen Ur Leukocyte Esterase Urine WBC (Auto) Urine RBC (Auto) Ur Squamous Epith Cells Hyaline Casts 10/03/17 10/03/17 10/03/17 06:23 10:14 10:14 WBC 12.7 H RBC 4.25 L Hgb 13.1 Hct 39.2 MCV 92.3 MCH 30.7 MCHC 33.3 RDW 13.5 Plt Count 77 L MPV 8.3 Neut % (Auto) 77.0 H Lymph % (Auto) 12.5 L [place] % (Auto) 5.3 Eos % (Auto) 4.8 H Baso % (Auto) 0.4 Neut # (Auto) 9.8 H Lymph # (Auto) 1.6 [place] # (Auto) 0.7 Eos # (Auto) 0.6 Baso # (Auto) 0.0 APTT 83 H D Sodium Potassium Chloride Carbon Dioxide Anion Gap BUN Creatinine Est GFR ( Amer) Est GFR (Non-Af Amer) Random Glucose Calcium Phosphorus Magnesium Total Bilirubin AST ALT Alkaline Phosphatase Total Creatine Kinase CK-MB (Mass) Troponin I 1.5500 H* Total Protein Albumin Globulin Albumin/Globulin Ratio Triglycerides Cholesterol LDL Cholesterol Direct HDL Cholesterol Procalcitonin Urine Color Urine Clarity Urine pH Ur Specific [place] Urine Protein Urine Glucose (UA) Urine Ketones Urine Blood Urine Nitrate Urine Bilirubin Urine Urobilinogen Ur Leukocyte Esterase Urine WBC (Auto) Urine RBC (Auto) Ur Squamous Epith Cells Hyaline Casts
--- NOTE | 2017-10-03 20:01 | CP.PCM.PN ---
Subjective - Date & Time of Evaluation Date of Evaluation: 10/03/17 Time of Evaluation: 13:00 - Subjective Subjective: Patient seen and evaluated Denies chest pain and dyspnea Troponin trending down Hx of A FIb and GI bleeding Patient currently on IV Heparin and ASA After the ECHO will finalize the plan for CAD Objective - Vital Signs/Intake and Output Vital Signs (last 24 hours): Temp Pulse Resp BP Pulse Ox 98.5 F 65 24 147/99 H 95 10/03/17 14:00 10/03/17 14:00 10/03/17 14:00 10/03/17 17:11 10/03/17 14:00 - Medications Medications: Current Medications Amlodipine Besylate (Norvasc) 10 mg PO DAILY [facility] Last Admin: 10/03/17 05:07 Dose: 10 mg Aspirin (Ecotrin) 325 mg PO DAILY [facility] Last Admin: 10/03/17 09:30 Dose: 325 mg Carvedilol (Coreg) 12.5 mg PO BID [facility] Last Admin: 10/03/17 17:11 Dose: 12.5 mg Furosemide (Lasix) 40 mg IVP Q12 [facility] Last Admin: 10/03/17 09:28 Dose: 40 mg Heparin Sodium/Sodium Chloride (Heparin 93616 Units/250ml 1/2 Normal Saline) 25 ,000 units in 250 mls @ 8.655 mls/hr IV .Q24H PRN; 12 UNITS/KG/HR PRN Reason: Protocol Losartan Potassium (Cozaar) 50 mg PO DAILY [facility] Last Admin: 10/03/17 09:28 Dose: 50 mg Nitroglycerin (Nitro-Bid 2% Oint) 1 ea TOP Q6 PRN PRN Reason: chest pain Last Admin: 10/03/17 02:57 Dose: 1 ea Pantoprazole Sodium (Protonix Ec Tab) 40 mg PO DAILY [facility] Last Admin: 10/03/17 09:29 Dose: 40 mg Tamsulosin HCl (Flomax) 0.4 mg PO DAILY [facility] Last Admin: 10/03/17 09:28 Dose: 0.4 mg - Labs Labs: 10/03/17 06:23 10/03/17 06:23 PT 16.2 SECONDS (9.7-12.2) H 10/02/17 18:45 INR 1.4 10/02/17 18:45 APTT 83 SECONDS (21-34) H D 10/03/17 10:14
[2017-10-04] MEDS: Aspirin 325 mg EC Tablets PO SCH (09:01)
[2017-10-04] MEDS: Pantoprazole 40 mg EC Tab PO SCH (09:01)
--- NOTE | 2017-10-04 14:39 | CARD ---
APPROVED REPORT EKG Measurement Heart [id number] <Conclusion> Atrial fibrillation Incomplete right bundle branch block Left anterior fascicular block Anterolateral infarct, age undetermined Abnormal ECG
--- NOTE | 2017-10-04 19:57 | CARD ---
APPROVED REPORT EXAM: Two-dimensional and M-mode echocardiogram with Doppler and color Doppler. Other Information Quality : Good[employer] : INDICATION CT 2D DIMENSIONS IVSd1.5 (0.7-1.1cm)LVDd4.2 (3.9-5.9cm) LVOT Diameter2.0 (1.8-2.4cm)PWd1.6 (0.7-1.1cm) LVDs3.7 (2.5-4.0cm)FS (%) 13.4 % LVEF (%)28.9 (>50%) M-Mode DIMENSIONS RVDd4.02 (2.1-3.2cm)Left Atrium (MM)5.39 (2.5-4.0cm) IVSd1.44 (0.7-1.1cm)Aortic Root3.05 (2.2-3.7cm) LVDd4.88 (4.0-5.6cm)Aortic Cusp Exc.1.72 (1.5-2.0cm) PWd1.13 (0.7-1.1cm)FS (%) 18 % LVDs3.98 (2.0-3.8cm)LVEF (%)38 (>50%) Aortic Valve AI P 1/2 [id number] Mitral Valve E/A ratio0.0 TDI E/Lateral E'0.0E/Medial E'0.0 Tricuspid Valve TR Peak [id number] Peak [id number] LEFT VENTRICLE The left ventricle is normal size. There is mild concentric left ventricular hypertrophy. The left ventricular function is moderately reduced, with diffuse hypokinesis. The left ventricular ejection fraction is 37%.. No regional wall motion abnormalities noted. The left ventricular diastolic function is indeterminate. No left ventricle thrombus noted on this study. There is no ventricular septal defect visualized. There is no left ventricular aneurysm. There is no mass noted in the left ventricle. RIGHT VENTRICLE The right ventricle is markedly dilated, There is normal right ventricular wall thickness. The right ventricular systolic function is markedly reduced. ATRIA The left atrial volume index is markedly increased. The right atrium size is rekdly dilated. The interatrial septum is intact with no evidence for an atrial septal defect. AORTIC VALVE The aortic valve is normal in structure and function. Mild aortic regurgitation is present. There is no aortic valvular stenosis. There is no aortic valvular vegetation. MITRAL VALVE The mitral valve is normal in structure and function. There is no evidence of mitral valve prolapse. There is no mitral valve stenosis. There is mild mitral valve regurgitation noted. TRICUSPID VALVE The tricuspid valve is normal in structure and function. There is mild tricuspid valve regurgitation noted. Estiamted PA systolic pressure is 60 mm Hg. There is no tricuspid valve prolapse or vegetation. There is no tricuspid valve stenosis. PULMONIC VALVE The pulmonary valve is normal in structure and function. There is no pulmonic valvular regurgitation. There is no pulmonic valvular stenosis. GREAT VESSELS The aortic root is normal in size. The ascending aorta is normal in size. The pulmonary artery is normal. The IVC is dilated and collapses >50% with inspiration. PERICARDIAL EFFUSION The pericardium appears normal. There is no pleural effusion. <Conclusion> Moderately reduced LV EF amd Mild LVH Severely dilated right and left atrium. Markedly dilated RV and markedly reduced RV function. Severe pulmonary HTN Mild aortic and mild mitral regurgitation.
--- NOTE | 2017-10-04 21:40 | CP.PCM.PN ---
Subjective - Date & Time of Evaluation Date of Evaluation: 10/04/17 Time of Evaluation: 20:30 - Subjective Subjective: Patient seen and evaluated denies chest pain and dyspnea ECHO: Redduced EF 35-40% Biatrial dilation Severe Pulmonary HTN Prefer aggressive medical therapy Objective - Vital Signs/Intake and Output Vital Signs (last 24 hours): Temp Pulse Resp BP Pulse Ox 98.0 F 69 18 116/76 97 10/04/17 19:19 10/04/17 19:19 10/04/17 19:19 10/04/17 19:19 10/04/17 19:19 Intake and Output: 10/04/17 10/05/17 18:59 06:59 Intake Total 454.6 Output Total 550 Balance -95.4 - Medications Medications: Current Medications Amlodipine Besylate (Norvasc) 10 mg PO DAILY [facility] Last Admin: 10/04/17 11:28 Dose: 10 mg Aspirin (Ecotrin) 325 mg PO DAILY [facility] Last Admin: 10/04/17 09:01 Dose: 325 mg Carvedilol (Coreg) 12.5 mg PO BID [facility] Last Admin: 10/04/17 17:59 Dose: 12.5 mg Enoxaparin Sodium (Lovenox) 40 mg SC DAILY [facility] Furosemide (Lasix) 40 mg IVP Q12 [facility] Last Admin: 10/04/17 11:27 Dose: 40 mg Losartan Potassium (Cozaar) 50 mg PO DAILY [facility] Last Admin: 10/04/17 09:01 Dose: 50 mg Nitroglycerin (Nitro-Bid 2% Oint) 1 ea TOP Q6 PRN PRN Reason: chest pain Last Admin: 10/03/17 02:57 Dose: 1 ea Pantoprazole Sodium (Protonix Ec Tab) 40 mg PO DAILY [facility] Last Admin: 10/04/17 09:01 Dose: 40 mg Tamsulosin HCl (Flomax) 0.4 mg PO DAILY [facility] Last Admin: 10/04/17 09:01 Dose: 0.4 mg - Labs Labs: 10/03/17 06:23 10/03/17 06:23 PT 16.2 SECONDS (9.7-12.2) H 10/02/17 18:45 INR 1.4 10/02/17 18:45 APTT 62 SECONDS (21-34) H D 10/04/17 06:38
[2017-10-05] MEDS: Aspirin 325 mg EC Tablets PO SCH (09:18)
[2017-10-05] MEDS: Pantoprazole 40 mg EC Tab PO SCH (09:19)
[2017-10-05] MEDS: Enoxaparin 40 mg Syringe SC SCH (09:19)
--- NOTE | 2017-10-05 21:03 | CP.PCM.PN ---
Subjective - Date & Time of Evaluation Date of Evaluation: 10/04/17 Time of Evaluation: 21:02 - Subjective Subjective: Patient is being more to the 6 floor. He is feeling better. Patient is somewhat confused in the evening time. Family is concerned about that. But the patient has no agitation and anxiety. On examination: HEENT PERRLA, neck supple No thyromegaly was noted and no cervical adenopathy noted Chest bilateral good air entry, no wheezing or rales noted CVS regular heart sound, no murmur Abdomen soft and no organomegaly Extremities no pedal edema, no leg swelling, pedal pulses are good. LABORATORY DIRECTOR alert awake oriented x3 no functional neurological deficit. Labs reviewed. X-ray reviewed Assessment and recommendation: 87-year-old male with history of diverticulosis, history of the massive diverticular bleeding in the past. Hypertension. Congestive heart failure. Atrial fibrillation. Admitted with acute exacerbation of CHF. Decompensated. Associated with the fall. Hypoxia. Hypertensive crisis, improving. Non-ST elevation FL. Spoke to the processing analyst. Conservative treatment, including aspirin, anticholesterol medication, and beta jacob. Will discontinue the heparin did, start the patient on heparin subcutaneous Objective - Vital Signs/Intake and Output Vital Signs (last 24 hours): Temp Pulse Resp BP Pulse Ox 97.4 F L 98 H 20 114/71 100 10/05/17 15:00 10/05/17 16:13 10/05/17 15:00 10/05/17 17:15 10/05/17 15:00 Intake and Output: 10/05/1718 18:59 06:59 Intake Total 300 Balance 300 - Medications Medications: Current Medications Amlodipine Besylate (Norvasc) 10 mg PO DAILY [facility] Last Admin: 10/05/17 09:19 Dose: 10 mg Aspirin (Ecotrin) 325 mg PO DAILY [facility] Last Admin: 10/05/17 09:18 Dose: 325 mg Carvedilol (Coreg) 12.5 mg PO BID [facility] Last Admin: 10/05/17 17:15 Dose: 12.5 mg Enoxaparin Sodium (Lovenox) 40 mg SC DAILY [facility] Last Admin: 10/05/17 09:19 Dose: 40 mg Furosemide (Lasix) 40 mg IVP Q12 [facility] Last Admin: 10/05/17 09:18 Dose: 40 mg Losartan Potassium (Cozaar) 50 mg PO DAILY [facility] Last Admin: 10/05/17 09:18 Dose: 50 mg Nitroglycerin (Nitro-Bid 2% Oint) 1 ea TOP Q6 PRN PRN Reason: chest pain Last Admin: 10/03/17 02:57 Dose: 1 ea Pantoprazole Sodium (Protonix Ec Tab) 40 mg PO DAILY [facility] Last Admin: 10/05/17 09:19 Dose: 40 mg Tamsulosin HCl (Flomax) 0.4 mg PO DAILY [facility] Last Admin: 10/05/17 09:19 Dose: 0.4 mg - Labs Labs: 10/03/17 06:23 10/03/17 06:23 PT 16.2 SECONDS (9.7-12.2) H 10/02/17 18:45 INR 1.4 10/02/17 18:45 APTT 62 SECONDS (21-34) H D 10/04/17 06:38
--- NOTE | 2017-10-05 21:05 | CP.PCM.PN ---
Subjective - Date & Time of Evaluation Date of Evaluation: 10/05/17 Time of Evaluation: 21:03 - Subjective Subjective: Patient is currently feeling better. He is eating well. Had a normal bowel movements. Family at bedside. Spoke to the daughter in detail. Vital signs stable. Chest good air entry. Leg swelling negative. No nausea vomiting. Clinical examination is unremarkable otherwise. Assessment and recommendation: 87-year-old male with history of arthritis, hypertension, congestive heart failure, intermittent atrial fibrillation, diverticular bleeding. Patient needs to have a physical therapy, able to walk today. I suggested for subacute rehabilitation. Family is agreeing. Will continue the physical therapy. And will follow the patient. Will discontinue the intravenous Lasix, to start the by mouth Lasix. Objective - Vital Signs/Intake and Output Vital Signs (last 24 hours): Temp Pulse Resp BP Pulse Ox 97.4 F L 98 H 20 114/71 100 10/05/17 15:00 10/05/17 16:13 10/05/17 15:00 10/05/17 17:15 10/05/17 15:00 Intake and Output: 10/05/1718 18:59 06:59 Intake Total 300 Balance 300 - Medications Medications: Current Medications Amlodipine Besylate (Norvasc) 10 mg PO DAILY [facility] Last Admin: 10/05/17 09:19 Dose: 10 mg Aspirin (Ecotrin) 325 mg PO DAILY [facility] Last Admin: 10/05/17 09:18 Dose: 325 mg Carvedilol (Coreg) 12.5 mg PO BID [facility] Last Admin: 10/05/17 17:15 Dose: 12.5 mg Enoxaparin Sodium (Lovenox) 40 mg SC DAILY [facility] Last Admin: 10/05/17 09:19 Dose: 40 mg Furosemide (Lasix) 40 mg IVP Q12 [facility] Last Admin: 10/05/17 09:18 Dose: 40 mg Losartan Potassium (Cozaar) 50 mg PO DAILY [facility] Last Admin: 10/05/17 09:18 Dose: 50 mg Nitroglycerin (Nitro-Bid 2% Oint) 1 ea TOP Q6 PRN PRN Reason: chest pain Last Admin: 10/03/17 02:57 Dose: 1 ea Pantoprazole Sodium (Protonix Ec Tab) 40 mg PO DAILY [facility] Last Admin: 10/05/17 09:19 Dose: 40 mg Tamsulosin HCl (Flomax) 0.4 mg PO DAILY [facility] Last Admin: 10/05/17 09:19 Dose: 0.4 mg - Labs Labs: 10/03/17 06:23 10/03/17 06:23 PT 16.2 SECONDS (9.7-12.2) H 10/02/17 18:45 INR 1.4 10/02/17 18:45 APTT 62 SECONDS (21-34) H D 10/04/17 06:38
[2017-10-06 06:54] LABS: BASO % 0.3 % (0.0-2.0); EOS # 0.7 K/uL (0.0-0.7); EOS % 9.1 % (0.0-4.0); HEMOGLOBIN 13.1 g/dL (12.0-18.0); LYMPH # 2.6 K/uL (1.0-4.3); LYMPH % 36.5 % (20.0-40.0); MEAN CELL VOLUME 91.2 fL (80.0-94.0); MEAN CORPUSCULAR HEMOGLOBIN 31.1 pg (27.0-31.0); MEAN CORPUSCULAR HGB CONC 34.1 g/dL (33.0-37.0); MEAN PLATELET VOLUME 8.1 fL (7.2-11.7); MONO # 0.8 K/uL (0.0-0.8); MONO % 11.1 % (0.0-10.0); NEUT # 3.1 K/uL (1.8-7.0); RBC 4.21 Mil/uL (4.40-5.90); RED CELL DISTRIBUTION WIDTH 13.4 % (11.5-14.5); WHITE BLOOD COUNT 7.1 K/uL (4.8-10.8)
[2017-10-06 07:04] LABS: ALB/GLOB RATIO 0.8 (1.0-2.1); ALBUMIN 3.4 g/dL (3.5-5.0); ALT/SGPT 56 U/L (21-72); AST/SGOT 62 U/L (17-59); BLOOD UREA NITROGEN 33 mg/dL (9-20); CALCIUM 9.6 mg/dl (8.6-10.4); GFR AFRICAN-AMERICAN > 60; GFR NON-AFRICAN AMERICAN 57; MAGNESIUM 1.9 mg/dL (1.6-2.3)
[2017-10-06 08:48] VITALS: TEMP 97.9; O2SAT 99
[2017-10-06] MEDS: Enoxaparin 40 mg Syringe SC SCH (09:41)
[2017-10-06] MEDS: Pantoprazole 40 mg EC Tab PO SCH (09:41)
[2017-10-06] MEDS: Aspirin 325 mg EC Tablets PO SCH (09:41)
[2017-10-06] MEDS ORDERED: Potassium Chloride 20 mEq ER Tab PO ONE (10:00)
--- NOTE | 2017-10-06 14:33 | CP.PCM.PN ---
Subjective - Date & Time of Evaluation Date of Evaluation: 10/06/17 Time of Evaluation: 10:45 - Subjective Subjective: Patient seen today, oob to chair, denies any chest pain, sob, dizziness, headache, N/V/d No overnight events reported on monitor daughter at bedside , reported periods of confusion early am . but baseline now Objective - Vital Signs/Intake and Output Vital Signs (last 24 hours): Temp Pulse Resp BP Pulse Ox 97.9 F 82 20 150/80 99 10/06/17 08:00 10/06/17 08:00 10/06/17 08:00 10/06/17 09:40 10/06/17 08:00 Intake and Output: 10/06/17 10/06/17 06:59 18:59 Output Total 150 Balance -150 - Medications Medications: Current Medications Amlodipine Besylate (Norvasc) 10 mg PO DAILY [facility] Last Admin: 10/06/17 09:41 Dose: 10 mg Aspirin (Ecotrin) 325 mg PO DAILY [facility] Last Admin: 10/06/17 09:41 Dose: 325 mg Carvedilol (Coreg) 12.5 mg PO BID [facility] Last Admin: 10/06/17 09:40 Dose: 12.5 mg Enoxaparin Sodium (Lovenox) 40 mg SC DAILY [facility] Last Admin: 10/06/17 09:41 Dose: 40 mg Furosemide (Lasix) 40 mg PO DAILY [facility] Last Admin: 10/06/17 09:40 Dose: 40 mg Losartan Potassium (Cozaar) 50 mg PO DAILY [facility] Last Admin: 10/06/17 09:40 Dose: 50 mg Nitroglycerin (Nitro-Bid 2% Oint) 1 ea TOP Q6 PRN PRN Reason: chest pain Last Admin: 10/03/17 02:57 Dose: 1 ea Pantoprazole Sodium (Protonix Ec Tab) 40 mg PO DAILY [facility] Last Admin: 10/06/17 09:41 Dose: 40 mg Tamsulosin HCl (Flomax) 0.4 mg PO DAILY [facility] Last Admin: 10/06/17 09:40 Dose: 0.4 mg - Labs Labs: 10/06/17 06:30 10/06/17 06:30 PT 16.2 SECONDS (9.7-12.2) H 10/02/17 18:45 INR 1.4 10/02/17 18:45 APTT 62 SECONDS (21-34) H D 10/04/17 06:38 - Constitutional Appears: Well, No Acute Distress - Respiratory Exam Respiratory Exam: Clear to Ausculation Bilateral, NORMAL BREATHING PATTERN - Cardiovascular Exam Cardiovascular Exam: Irregular Rhythm, +S1, +S2 - Neurological Exam Neurological Exam: Alert, Awake, Oriented x3 Assessment and Plan - Assessment and Plan (Free Text) Assessment: A/P 87 yr old mal e with pmhx of Atrial Fibrillation, Benign Prostatic Hyperplasia , CHF, Diverticulitis, HTN, Hypercholesterolemia, Chronic Kidney Disease admitted with NSTEMI troponin trending down -1.55<2.2900 Medical management as pe rDr. Isaac Patient [place] [facility] [place] and patient and family in agreement D/W Dr. Ventura , stable for discharge to [facility] today and Dr. Ventura will follow the patient at [facility] Discharge plan discussed with patient , daughter and son at bed kim e, who understands and agrees with plan
[2017-10-06 16:21] VITALS: BP 120/70; PULSE 54; RESP 22
--- NOTE | 2017-10-06 23:20 | CP.PCM.DIS ---
Provider - Provider Date of Admission: 10/02/17 17:33 Attending physician: Grupo Ventura MD Time Spent in preparation of Discharge (in minutes): 45 Hospital Course - Lab Results Lab Results: Micro Results 10/02/17 16:30 Blood Blood Culture - Preliminary NO GROWTH AFTER 4 DAYS 10/02/17 17:10 Blood Blood Culture - Preliminary NO GROWTH AFTER 4 DAYS 10/02/17 Unknown Naris MRSA Culture (Admit) - Final MRSA NOT DETECTED 10/02/17 Unknown Urine,Clean Catch Urine Culture - Final No Growth (<1,000 CFU/ML) Most Recent Lab Values WBC 7.1 K/uL (4.8-10.8) 10/06/17 06:30 RBC 4.21 Mil/uL (4.40-5.90) L 10/06/17 06:30 Hgb 13.1 g/dL (12.0-18.0) 10/06/17 06:30 Hct 38.4 % (35.0-51.0) 10/06/17 06:30 MCV 91.2 fL (80.0-94.0) 10/06/17 06:30 MCH 31.1 pg (27.0-31.0) H 10/06/17 06:30 MCHC 34.1 g/dL (33.0-37.0) 10/06/17 06:30 RDW 13.4 % (11.5-14.5) 10/06/17 06:30 Plt Count 104 K/uL (130-400) L D 10/06/17 06:30 MPV 8.1 fL (7.2-11.7) 10/06/17 06:30 Neut % (Auto) 43.0 % (50.0-75.0) L 10/06/17 06:30 Lymph % (Auto) 36.5 % (20.0-40.0) 10/06/17 06:30 Erie % (Auto) 11.1 % (0.0-10.0) H 10/06/17 06:30 Eos % (Auto) 9.1 % (0.0-4.0) H 10/06/17 06:30 Baso % (Auto) 0.3 % (0.0-2.0) 10/06/17 06:30 Neut # (Auto) 3.1 K/uL (1.8-7.0) 10/06/17 06:30 Lymph # (Auto) 2.6 K/uL (1.0-4.3) 10/06/17 06:30 Erie # (Auto) 0.8 K/uL (0.0-0.8) 10/06/17 06:30 Eos # (Auto) 0.7 K/uL (0.0-0.7) 10/06/17 06:30 Baso # (Auto) 0.0 K/uL (0.0-0.2) 10/06/17 06:30 Neutrophils % (Manual) 88 % (50-75) H 10/02/17 16:36 Band Neutrophils % 1 % (0-2) 10/02/17 16:36 Lymphocytes % (Manual) 10 % (20-40) L 10/02/17 16:36 Monocytes % (Manual) 1 % (0-10) 10/02/17 16:36 Platelet Estimate Decreased (NORMAL) L 10/02/17 16:36 PT 16.2 SECONDS (9.7-12.2) H 10/02/17 18:45 INR 1.4 10/02/17 18:45 APTT 62 SECONDS (21-34) H D 10/04/17 06:38 pO2 56 mm/Hg (30-55) H 10/02/17 16:38 VBG pH 7.43 (7.32-7.43) 10/02/17 16:38 VBG pCO2 41 mmHg (40-60) 10/02/17 16:38 VBG HCO3 26.7 mmol/L 10/02/17 16:38 VBG Total CO2 28.5 mmol/L (22-28) H 10/02/17 16:38 VBG O2 Sat (Calc) 92.1 % (40-65) H 10/02/17 16:38 VBG Base Excess 2.6 mmol/L (0.0-2.0) H 10/02/17 16:38 VBG Potassium 2.8 mmol/L (3.6-5.2) L 10/02/17 16:38 Sodium 143.0 mmol/l (132-148) 10/02/17 16:38 Chloride 112.0 mmol/L (98-107) H 10/02/17 16:38 Glucose 96 mg/dl (75-110) 10/02/17 16:38 Lactate 1.2 mmol/L (0.7-2.1) 10/02/17 16:38 Sodium 140 mmol/L (132-148) 10/06/17 06:30 Potassium 3.2 mmol/L (3.6-5.2) L 10/06/17 06:30 Chloride 97 mmol/L (98-107) L 10/06/17 06:30 Carbon Dioxide 33 mmol/L (22-30) H 10/06/17 06:30 Anion Gap 13 (10-20) 10/06/17 06:30 BUN 33 mg/dL (9-20) H 10/06/17 06:30 Creatinine 1.2 mg/dL (0.8-1.5) 10/06/17 06:30 Est GFR ( Amer) > 60 10/06/17 06:30 Est GFR (Non-Af Amer) 57 10/06/17 06:30 POC Glucose (mg/dL) 106 mg/dL (65-110) 10/02/17 16:36 Random Glucose 107 mg/dL (75-110) 10/06/17 06:30 Calcium 9.6 mg/dl (8.6-10.4) 10/06/17 06:30 Phosphorus 3.2 mg/dL (2.5-4.5) 10/03/17 06:23 Magnesium 1.9 mg/dL (1.6-2.3) 10/06/17 06:30 Total Bilirubin 1.2 mg/dL (0.2-1.3) 10/06/17 06:30 AST 62 U/L (17-59) H D 10/06/17 06:30 ALT 56 U/L (21-72) 10/06/17 06:30 Alkaline Phosphatase 55 U/L (38-126) 10/06/17 06:30 Total Creatine Kinase 197 U/L (55-170) H 10/02/17 23:05 CK-MB (Mass) 4.23 ng/mL (0.0-3.38) H 10/02/17 23:05 Troponin I 1.5500 ng/mL (0.00-0.120) H* 02/11/18 10:14 NT-Pro-B Natriuret Pep 4400 pg/mL (0-900) H 10/02/17 16:36 Total Protein 7.6 g/dL (6.3-8.3) 10/06/17 06:30 Albumin 3.4 g/dL (3.5-5.0) L 10/06/17 06:30 Globulin 4.1 gm/dL (2.2-3.9) H 10/06/17 06:30 Albumin/Globulin Ratio 0.8 (1.0-2.1) L 10/06/17 06:30 Triglycerides 42 mg/dL (0-149) 10/03/17 06:23 Cholesterol 122 mg/dL (0-199) 10/03/17 06:23 LDL Cholesterol Direct 57 mg/dL (0-129) 10/03/17 06:23 HDL Cholesterol 41 mg/dL (30-70) 10/03/17 06:23 Procalcitonin 0.35 NG/ML (0.19-0.49) 10/02/17 23:05 Venous Blood Potassium 2.8 mmol/L (3.6-5.2) L 10/02/17 16:38 Urine Color Straw (YELLOW) 10/03/17 00:16 Urine Clarity Clear (Clear) 10/03/17 00:16 Urine pH 5.0 (5.0-8.0) 10/03/17 00:16 Ur Specific Jeffrey 1.009 (1.003-1.030) 10/03/17 00:16 Urine Protein 1+ mg/dL (NEGATIVE) H 10/03/17 00:16 Urine Glucose (UA) Normal mg/dL (Normal) 10/03/17 00:16 Urine Ketones Negative mg/dL (NEGATIVE) 10/03/17 00:16 Urine Blood 2+ (NEGATIVE) H 10/03/17 00:16 Urine Nitrate Negative (NEGATIVE) 10/03/17 00:16 Urine Bilirubin Negative (NEGATIVE) 10/03/17 00:16 Urine Urobilinogen Normal mg/dL (0.2-1.0) 10/03/17 00:16 Ur Leukocyte Esterase Neg Bettye/uL (Negative) 10/03/17 00:16 Urine WBC (Auto) < 1 /hpf (0-5) 10/03/17 00:16 Urine RBC (Auto) 20 /hpf (0-3) H 10/03/17 00:16 Ur Squamous Epith Cells < 1 /hpf (0-5) 10/03/17 00:16 Urine Bacteria Rare (<OCC) 10/02/17 19:06 Hyaline Casts 0-2 /lpf (0-2) 10/03/17 00:16 Influenza Typ A,B (EIA) Negative for flu a/b (NEGATIVE) 10/02/17 16:29 Blood Type O POSITIVE 10/02/17 18:45 Antibody Screen Negative 10/02/17 18:45 - Hospital Course Hospital Course: Chief complaint: Fatigability HPI: 87-year-old male with a history of intermittent atrial fibrillation, congestive heart failure, diverticulosis, history of hypertension, hypercholesterolemia, BPH, arthritis. Patient has a history of massive GI bleed in 2016. Patient is currently not on any anticoagulation because of the GI bleed, currently taking aspirin. Patient is doing well. On the day of admission patient was trying to get down the basement, and he had a fall, but he is able to get up and came upstairs pain According to the patient's daughter and patient was having altered mental status , not responding very well, and lethargic, and the patient was immediately taken to the [facility] by the amylase. In the emergency room patient was somewhat lethargic, found to have congestive heart failure. He is also having some shortness of breath, and weakness. Past medical history: Intermittent atrial fibrillation, CHF, diverticulosis, hypertension, high cholesterol, BPH and arthritis. Allergies: No known drug allergy Personal history: Nonsmoker nonalcoholic lives with family Surgical history nonspecific. 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 Family is concerned about sundowning in the evening time. Minimal distress noted. Denies any chest pain. Leg swelling negative Vital signs reviewed No neck vein distention noted Chest good air entry bilaterally, no wheezing or rales noted CVS regular heart sound, no murmur noted Abdomen soft, nontender. 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 Now admitted with possible CHF exacerbation, and associated with non-ST elevation ischemia. Myocardial infarction. Cardiology evaluation. Antiplatelets, apparently. Will start the patient on beta jacob. Lipitor. Patient is a high risk for GI bleed. Will continue to monitor and will follow the patient. Patient hospitalized. Initially started on intravenous heparin drip. Patient admitted to the intensive care unit with acute non-ST elevation ID. Cardiology evaluation was called. Patient is also receiving Lasix, and he did a good diagnosis, oxygenation improved. Patient was feeling much better. Given the patient's age, and also other comorbidities, it was decided to go ahead for conservative treatment with their non-ST elevation ID. Patient is currently feeling better. I spoke to the patient's family daughter as well as patient's son in detail. Patient is having episodes of confusion, likely secondary to sundowning. But he is awake and responding. Following commands. Clinical history bladder was Labs today Discussed with the patient's family today. He will be discharged to the rehabilitation. We will continue the Lasix, blood pressure control. Aspirin, Lipitor. DVT prophylaxis. Patient is not a candidate for full anticoagulation secondary to massive GI bleed, discussed with the family, also discuss with the mapping specialist. And we will follow the patient. [place] to the rehabilitation center for subacute rehabilitation because of the fall as well as also secondary to weakness Discharge Exam - Head Exam Head Exam: ATRAUMATIC, NORMAL INSPECTION, NORMOCEPHALIC Discharge Plan - Discharge Medications Prescriptions: Aspirin [Aspirin EC] 325 mg PO DAILY #30 ect - Follow Up Plan Condition: GUARDED Disposition: HOME/ ROUTINE Instructions: Myocardial Infarction (DC), Heart Failure (DC), Heart Healthy Diet (DC), Pneumonia (DC) Additional Instructions: Please admit patient under Dr. Ventura service- Call Dr. Ventura upon patient arrival to the facility Continue medication as per Med. Rec. Please repeat cbc, bmp on wednesday Referrals: Gruop Ventura MD [Staff Provider] -
--- NOTE | 2017-10-07 08:08 | PCM.HF ---
Heart Failure Core Measure - Heart Failure Ejection Fraction: Less Than 40 % JIM Inhibitor Prescribed: No Contraindication/Reason for not providing: on ARB Beta-Shruthi Prescribed: Carvedilol Angiotensin II Receptor Shruthi Prescribed: Yes AnticoagulationTherapy for Atrial Fibrillation/Atrialflutter: No Contraindication/Reason for not providing: high risk for bleeding Aldosterone Antagonist Prescribed: No Contraindication/Reason for not providing: high risk for hyperkalemia / ARF Hydralazine Nitrate Prescribed: Yes Implantable Cardioverter Defibrillator Therapy: No Contraindication/Reason for not providing: medical management as per cardio Cardiac Resynchronization Therapy Prescribed: No Contraindication/Reason for not providing: medical managemtn as per cardio - Follow up Will be discharged to: [facility]) Follow Up Date (must be within 7 days from discharge): 10/08/17 Follow Up Time: 09:00
== END 2017-10-06 20:00 | DRG 280 ==
LOC: C.ER 15:43 → C.9E 17:33 → C.9I 17:33 → C.6T 17:33
PROVIDERS: ADMIT Internal Medicine; ATTEND Internal Medicine
DX: I21.4 Non-ST elevation (NSTEMI) myocardial infarction (principal); J18.9 Pneumonia, unspecified organism; D69.6 Thrombocytopenia, unspecified; I13.0 Hypertensive heart and chronic kidney disease with heart failure and stage 1 through stage 4 chronic kidney disease, or unspecified chronic kidney disease; I27.20 Pulmonary hypertension, unspecified; I50.9 Heart failure, unspecified; I48.91 Unspecified atrial fibrillation; R31.9 Hematuria, unspecified; N18.9 Chronic kidney disease, unspecified; E78.00 Pure hypercholesterolemia, unspecified; F17.210 Nicotine dependence, cigarettes, uncomplicated; N40.1 Benign prostatic hyperplasia with lower urinary tract symptoms; K57.90 Diverticulosis of intestine, part unspecified, without perforation or abscess without bleeding; I25.10 Atherosclerotic heart disease of native coronary artery without angina pectoris; R09.02 Hypoxemia; Z79.82 Long term (current) use of aspirin; R41.0 Disorientation, unspecified

== ENCOUNTER 2018-03-15 10:01 | Inpatient (IN) | payer MEDICARE, OTHER ==
[2018-03-15 10:02] VITALS: BMI 26.2
[2018-03-15] MEDS ORDERED: Piperacillin/Tazobact 3.375 gm 100 ML IVPB STA (10:34)
[2018-03-15 11:06] LABS: BASO # 0.1 K/uL (0.0-0.2); BASO % 0.7 % (0.0-2.0); EOS # 0.3 K/uL (0.0-0.7); EOS % 3.1 % (0.0-4.0); HEMOGLOBIN 12.4 g/dL (12.0-18.0); LYMPH # 2.4 K/uL (1.0-4.3); LYMPH % 22.6 % (20.0-40.0); MEAN CELL VOLUME 90.6 fL (80.0-94.0); MEAN CORPUSCULAR HEMOGLOBIN 30.8 pg (27.0-31.0); MEAN PLATELET VOLUME 7.8 fL (7.2-11.7); MONO # 1.1 K/uL (0.0-0.8); MONO % 10.8 % (0.0-10.0); NEUT # 6.5 K/uL (1.8-7.0); NEUT % 62.8 % (50.0-75.0); NRBC % 0.1 % (0.0-2.0); RBC 4.02 Mil/uL (4.40-5.90); RED CELL DISTRIBUTION WIDTH 13.6 % (11.5-14.5); WHITE BLOOD COUNT 10.4 K/uL (4.8-10.8)
[2018-03-15] MEDS ORDERED: Piperacillin/Tazobact 3.375 gm 100 ML IVPB ONE (11:10)
[2018-03-15 11:20] LABS: CALCIUM 9.5 mg/dl (8.6-10.4)
[2018-03-15 11:21] LABS: ALB/GLOB RATIO 0.9 (1.0-2.1)
--- NOTE | 2018-03-15 11:28 | RAD ---
Date of service: 03/15/2018 PROCEDURE: CHEST RADIOGRAPH, 1 VIEW HISTORY: SOB COMPARISON: 10/02/2017 and Dec 24 1014 FINDINGS: LUNGS: Evaluation left lung base is limited. However no definitive obscuration or silhouetting out of the left hemidiaphragm is perceived in this patient with marked cardiomegaly. All tiny granulomas in each mid to upper lung zone. Significant change here prior studies. PLEURA: No pneumothorax. Small left pleural effusion- cannot be excluded now or as before. CARDIOVASCULAR: Marked cardiomegaly-similar. Prominent central hilar vasculature right greater than left stable since 2014. An element of pulmonary venous congestion is possible. Mild tortuosity of the thoracic aorta as before. OSSEOUS STRUCTURES: Thoracic spondylosis. Bilateral shoulder arthrosis. VISUALIZED UPPER ABDOMEN: Normal. OTHER FINDINGS: None. IMPRESSION: Marked cardiomegaly - similar. Small left pleural effusion cannot be excluded - here no change is perceived. Mild pulmonary venous congestion -chronic/ similar-appearing. Granulomatous changes inferred-similar. No interval pathology noted.
[2018-03-15 11:31] LABS: TROPONIN I 0.016 ng/mL (0.00-0.120)
--- NOTE | 2018-03-15 11:51 | C.PDOC ---
History Of Present Illness 87 year old male presents to the ED after being sent by Dr. Ventura for evaluation of lower extremity swelling which began one month ago. Patient states the areas have started becoming red over the past week, with some weeping noted. Patient denies fever, chills, chest pain. Time Seen by Provider: 03/15/18 10:26 Chief Complaint (Nursing): Abnormal Skin Integrity History Per: Patient History/Exam Limitations: no limitations Onset/Duration Of Symptoms: Other (1 month ) Current Symptoms Are (Timing): Still Present Quality Of Symptoms: Swollen, Draining Additional History Per: Patient Past Medical History Reviewed: Historical Data, Nursing Documentation, Vital Signs Vital Signs: Last Vital Signs Temp 97.9 F 03/15/18 14:40 Pulse 57 L 03/15/18 14:40 Resp 16 03/15/18 14:40 BP 110/69 03/15/18 14:40 Pulse Ox 98 03/15/18 15:28 - Medical History PMH: Arthritis, Atrial Fibrillation, Benign Prostatic Hyperplasia, CHF, Diverticulitis, HTN, Hypercholesterolemia, Chronic Kidney Disease Surgical History: No Surg Hx - [facility] Procedures CATARAC PHACOEMULS/ASPIR (08/17/13) COLONOSCOPY (12/09/13) CORONAR ARTERIOGR-2 CATH (09/08/02) ENDOSCOP DEST OF OTH LESION OR TISU OF LRG INTESTN (12/09/13) INSERT LENS AT CATAR EXT (08/17/13) LEFT HEART CARDIAC CATH (09/08/02) LT HEART ANGIOCARDIOGRAM (09/08/02) OTHER LOCAL DESTRUC SKIN (01/12/13) PACKED CELL TRANSFUSION (12/09/13) SERUM TRANSFUSION NEC (12/09/13) TETANUS TOXOID ADMINIST (12/24/14) VACCINATION NEC (12/09/13) Family History: States: Unknown Family Hx - Social History Hx Tobacco Use: Yes Hx Alcohol Use: No Hx Substance Use: No - Immunization History Hx Tetanus Toxoid Vaccination: No Hx Influenza Vaccination: Yes (04/2014) Hx Pneumococcal Vaccination: Yes (2016) Review Of Systems Constitutional: Negative for: Fever, Chills Cardiovascular: Negative for: Chest Pain Skin: Positive for: Other (swelling, erythema and weeping to lower extremities ) Physical Exam - Physical Exam Appears: Non-toxic, No Acute Distress Skin: Normal Color, Warm, Dry Head: Atraumatic, Normacephalic Eye(s): bilateral: Normal Inspection Oral Mucosa: Moist Neck: Supple Chest: Symmetrical, No Deformity, No Tenderness Cardiovascular: Rhythm Regular, No Murmur Respiratory: Normal Breath Sounds, No Rales, No Rhonchi, No Wheezing Extremity: Normal ROM, Capillary Refill (less than 2 seconds ), Other (+2 pitting edema to bilateral lower extremities. erythema diffusely to bilateral lower extremities with mild weeping of skin) Pulses: Left Dorsalis Pedis: Normal, Right Dorsalis Pedis: Normal Neurological/Psych: Oriented x3, Normal Speech, Normal Cognition, Normal Sensation ED Course And Treatment - Laboratory Results Result Diagrams: 03/15/18 10:58 03/15/18 10:58 ECG Rhythm: Atrial Fibrillation Interpretation Of ECG: Rate controlled atrial fibrillation at 68bpm. Left anterior fascicular block. Nonspecific ST/T wave changes. Rate From EC O2 Sat by Pulse Oximetry: 98 (on RA) Pulse Ox Interpretation: Normal Medical Decision Making Medical Decision Making: Assessment: peripheral edema and cellulitis Plan: * bloodwork * CXR * EKG * Zosyn IVP * Vancomycin IVP * reassess and disposition Progress: Bloodwork, CXR, EKG ordered and reviewed. Zosyn IVP, Vancomycin IVPB given. Disposition Discussed With : Grupo Ventura Counseled Patient/Family Regarding: Studies Performed, Diagnosis - Disposition Disposition: HOSPITALIZED Disposition Time: 11:50 Condition: FAIR - Clinical Impression Clinical Impression: CHF (congestive heart failure), Cellulitis - Scribe Statement The provider has reviewed the documentation as recorded by the Scribe (Yoly Redding) Provider Attestation: All medical record entries made by the Scribe were at my direction and personally dictated by me. I have reviewed the chart and agree that the record accurately reflects my personal performance of the history, physical exam, medical decision making, and the department course for this patient. I have also personally directed, reviewed, and agree with the discharge instructions and disposition.
[2018-03-15] MEDS ORDERED: Vancomycin 1 gm/NS 200 ml 1 GM/200 ML BAG IVPB STA (12:24)
[2018-03-15] MEDS ORDERED: Albuterol 0.083% Inhal Sol (2.5 mg/3 mL) UD IH PRN (16:57)
[2018-03-15] MEDS ORDERED: cefTRIAXone 1 gm in cefTRIAXone IV 1 gm in Dextros 50 ML IVPB SCH (18:00)
[2018-03-15] MEDS: cefTRIAXone IV 1 gm in Dextros 50 ML IVPB SCH (18:09)
[2018-03-15] MEDS: Lactobacillus Acidophilus 500 MU Cap PO SCH (18:09)
--- NOTE | 2018-03-15 20:03 | CP.PCM.HP ---
History of Present Illness - History of Present Illness History of Present Illness: Chief complaint: Patient came to the office today with worsening bilateral leg swelling, weeping edema, unable to walk, pain in the legs.And I sent the patient to the emergency room because of a suspected cellulitis HPI: 87-year-old male with a history of intermittent atrial fibrillation, congestive heart failure, diverticulosis, history of hypertension, hypercholesterolemia, BPH, arthritis. Patient has a history of massive GI bleed in 2016. Patient is currently not on any anticoagulation because of the GI bleed, currently taking aspirin. Patient came to the office a few days ago weeks ago, with gradually worsening bilateral leg swelling. I advised the patient at that time, to increase the Lasix. In spite of that recently he started having increasing leg swelling. [place] a week at least the patient was feeling more depressed, because of the ongoing pain in the legs, associate with the leg swelling, itching and also feeling weakness, tiredness, fatigability, and chills. No fever noted. For the last 2 to days he started noticing bruising in the legs both sides, more on the right side. Increasing redness noted in the legs, associated with the pain and tenderness. Patient is poorly eating. He has no diarrhea. Denies any chest pain. No shortness of breath or cough noted. Past medical history: Intermittent atrial fibrillation, CHF, diverticulosis, hypertension, high cholesterol, BPH and arthritis. Allergies: No known drug allergy Personal history: Nonsmoker nonalcoholic lives with family Surgical history nonspecific. 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 Family is concerned about sundowning in the evening time. Minimal distress noted. Denies any chest pain. Bilateral leg swelling. Worsening now. Also associate with the pain and redness Vital signs reviewed No neck vein distention noted Chest good air entry bilaterally, no wheezing or rales noted CVS regular heart sound, no murmur noted Abdomen soft, nontender. Patient has a bilateral leg edema both sides more on the right side. Multiple excoriation noted, skin peeling noted. He is also having increasing redness. Losing discharge noted in the right leg mostly. Also minimal discharge in the left leg associate with excoriation and redness. Edema significantly noted [employer] alert awake oriented -3, no functional neurological deficit Labs Elevated proBNP X-ray congestive changes Assessment and recommendation: 87 male with history of atrial fibrillation, CHF, diverticulosis hypertension and hypercholesteremia BPH and arthritis. Patient has possibly acute cellulitis involving the bilateral lower extremities , associate with the leg edema and venous insufficiency. Underlying congestive heart failure with mild exacerbation cannot be ruled out. We will keep the leg elevated. Cellulitis, we will start the patient on antibiotic Rocephin twice a day. Podiatry evaluation in consultation, cardiology evaluation. Physical therapy. Wound evaluation. DVT and GI prophylaxis will follow the patient. Patient is not on anticoagulation secondary to history of GI bleed in the past Present on Admission - Present on Admission Any Indicators Present on Admission: No History of DVT/PE: No History of Uncontrolled Diabetes: No Urinary Catheter: No Decubitus Ulcer Present: No Past Patient History - Infectious Disease Hx of Infectious Diseases: None - Past Medical History & Family History Past Medical History?: Yes - Past Social History Smoking Status: Former Smoker - CARDIAC Hx Atrial Fibrillation: Yes Hx Congestive Heart Failure: Yes Hx Hypercholesterolemia: Yes Hx Hypertension: Yes - PULMONARY Hx Respiratory Disorders: No - NEUROLOGICAL Hx Neurological Disorder: No - HEENT Hx HEENT Problems: Yes Hx Cataracts: Yes (left eye surgery 2012) - RENAL Hx Chronic Kidney Disease: Yes - ENDOCRINE/METABOLIC Hx Endocrine Disorders: No - HEMATOLOGICAL/ONCOLOGICAL Hx Blood Disorders: No - INTEGUMENTARY Hx Dermatological Problems: No - MUSCULOSKELETAL/RHEUMATOLOGICAL Hx Musculoskeletal Disorders: Yes Hx Arthritis: Yes Hx Falls: Yes Other/Comment: uses cane to ambulate - GASTROINTESTINAL Hx Gastrointestinal Disorders: Yes Hx Diverticulitis: Yes - GENITOURINARY/GYNECOLOGICAL Hx Genitourinary Disorders: Yes Hx Urinary Tract Infection: Yes Other/Comment: BPH - PSYCHIATRIC Hx Psychophysiologic Disorder: No Hx Substance Use: No - SURGICAL HISTORY Hx Surgeries: Yes Hx Cataract Extraction: Yes (2012) Hx Cardiac Catheterization: Yes (2002) - ANESTHESIA Hx Anesthesia: Yes Hx Anesthesia Reactions: No Hx Malignant Hyperthermia: No Meds Allergies/Adverse Reactions: Allergies Allergy/AdvReac Type Severity Reaction Status Date / Time No Known Allergies Allergy Verified 03/15/18 10:35 Results - Vital Signs Recent Vital Signs: Last Vital Signs Temp 97.9 F 03/15/18 14:40 Pulse 55 L 03/15/18 19:55 Resp 16 03/15/18 14:40 BP 119/65 03/15/18 17:26 Pulse Ox 98 03/15/18 15:31 - Labs Result Diagrams: 03/15/18 10:58 03/15/18 10:58 Labs: Laboratory Results - last 24 hr 03/15/18 03/15/18 10:58 10:58 WBC 10.4 RBC 4.02 L Hgb 12.4 Hct 36.4 MCV 90.6 MCH 30.8 MCHC 34.0 RDW 13.6 Plt Count 138 MPV 7.8 Neut % (Auto) 62.8 Lymph % (Auto) 22.6 [place] % (Auto) 10.8 H Eos % (Auto) 3.1 Baso % (Auto) 0.7 Neut # (Auto) 6.5 Lymph # (Auto) 2.4 [place] # (Auto) 1.1 H Eos # (Auto) 0.3 Baso # (Auto) 0.1 Sodium 144 Potassium 4.7 Chloride 105 Carbon Dioxide 24 Anion Gap 20 BUN 44 H Creatinine 1.5 Est GFR ( Amer) 53 Est GFR (Non-Af Amer) 44 Random Glucose 107 Calcium 9.5 Total Bilirubin 1.1 AST 50 ALT 41 Alkaline Phosphatase 90 Troponin I 0.0160 NT-Pro-B Natriuret Pep 924 H Total Protein 8.6 H Albumin 4.0 Globulin 4.6 H Albumin/Globulin Ratio 0.9 L
--- NOTE | 2018-03-15 20:44 | CARD ---
APPROVED REPORT Date of service: 03/15/2018 EKG Measurement Heart [id number] <Conclusion> Atrial fibrillation Left anterior fascicular block Abnormal ECG
[2018-03-16] MEDS: cefTRIAXone IV 1 gm in Dextros 50 ML IVPB SCH ×2 (05:05→17:02)
[2018-03-16] MEDS: Aspirin 325 mg EC Tablets PO SCH (10:14)
[2018-03-16] MEDS: Pantoprazole 40 mg EC Tab PO SCH (10:14)
[2018-03-16] MEDS: Enoxaparin 40 mg Syringe SC SCH (10:14)
[2018-03-16] MEDS: Lactobacillus Acidophilus 500 MU Cap PO SCH ×2 (10:14→17:03)
--- NOTE | 2018-03-16 13:21 | CP.PCM.CON ---
<Malgorzata KabaRao - Last Filed: 03/16/18 17:39> History of Present Illness - History of Present Illness History of Present Illness: PGY2- Consult note for Dr. Gray HPI: Patient is an 87 year old male with PMHx of A fib, HTN, HLD, CHF, NSTEMI, BPH, Diverticulitis, CKD who presented to the ER on 03/15 for LE edema and erythema. He was told to come to the ER by Dr. Vetnura because the cellulitis persisted for the past month. Patient is a poor historian, but complains of leg pain and shortness of breath worsened by exertion with walking or climbing stairs. He sleeps with 3 pillows at night. Patient also reported having to get up to urinate 1-2x/night at times and presence of fatigue, dry cough, cold intolerance, chills, and an occasional chest pain. Patient rates the chest pain as 4/10. Pain is worse with exertion, better with rest, located in the apex, lasts 5 minutes, and occurs 1x/week. Patient has bowel movements 3x /week. Patient denies fever, abdominal pain, current chest pain, back pain, and nausea/vomiting. PMHx: A fib, HTN, HLD, CHF, NSTEMI, BPH, Diverticulitis, CKD Allergies:NKDA PSHx:No surgical hx SocHx: smoked 1/3 pack/day for 17 years and quit 50 years ago, used to drink 2- 3 beers every evening after work years ago Patient is a with 6 children. Lives with daughter. Review of Systems - Constitutional Constitutional: Chills, Fatigue. absent: Fever - Cardiovascular Cardiovascular: Chest Pain, Chest Pain with Activity, Dyspnea, Dyspnea on Exertion, Orthopnea. absent: Palpitations - Respiratory Respiratory: Cough, Dyspnea, Dyspnea on Exertion - Gastrointestinal Gastrointestinal: absent: Abdominal Pain, Constipation, Diarrhea, Nausea, Vomiting - Genitourinary Genitourinary: Nocturia. absent: Difficulty Urinating, Dysuria - Musculoskeletal Musculoskeletal: absent: Numbness, Tingling - Integumentary Integumentary: Dry Skin, Lesions, Rash, Skin Pain, Swelling - Hematologic/Lymphatic Hematologic: absent: Easy Bleeding, Easy Bruising Past Patient History - Infectious Disease Hx of Infectious Diseases: None - Past Medical History & Family History Past Medical History?: Yes - Past Social History Smoking Status: Former Smoker - CARDIAC Hx Atrial Fibrillation: Yes Hx Congestive Heart Failure: Yes Hx Hypercholesterolemia: Yes Hx Hypertension: Yes - PULMONARY Hx Respiratory Disorders: No - NEUROLOGICAL Hx Neurological Disorder: No - HEENT Hx HEENT Problems: Yes Hx Cataracts: Yes (left eye surgery 2012) - RENAL Hx Chronic Kidney Disease: Yes - ENDOCRINE/METABOLIC Hx Endocrine Disorders: No - HEMATOLOGICAL/ONCOLOGICAL Hx Blood Disorders: No - INTEGUMENTARY Hx Dermatological Problems: No - MUSCULOSKELETAL/RHEUMATOLOGICAL Hx Musculoskeletal Disorders: Yes Hx Arthritis: Yes Hx Falls: Yes Other/Comment: uses cane to ambulate - GASTROINTESTINAL Hx Gastrointestinal Disorders: Yes Hx Diverticulitis: Yes - GENITOURINARY/GYNECOLOGICAL Hx Genitourinary Disorders: Yes Hx Urinary Tract Infection: Yes Other/Comment: BPH - PSYCHIATRIC Hx Psychophysiologic Disorder: No Hx Substance Use: No - SURGICAL HISTORY Hx Surgeries: Yes Hx Cataract Extraction: Yes (2012) Hx Cardiac Catheterization: Yes (2002) - ANESTHESIA Hx Anesthesia: Yes Hx Anesthesia Reactions: No Hx Malignant Hyperthermia: No Meds Allergies/Adverse Reactions: Allergies Allergy/AdvReac Type Severity Reaction Status Date / Time No Known Allergies Allergy Verified 03/15/18 10:35 - Medications Medications: Current Medications Albuterol Sulfate (Albuterol 0.083% Inhal Christina (2.5 Mg/3 Ml) Ud) 3 mg RQ6 PRN PRN Reason: Shortness of Breath Aspirin (Ecotrin) 325 mg PO DAILY [facility] Last Admin: 03/16/18 10:14 Dose: 325 mg Carvedilol (Coreg) 3.125 mg PO BID [facility] Last Admin: 03/16/18 10:14 Dose: 3.125 mg Enoxaparin Sodium (Lovenox) 40 mg SC DAILY [facility] Last Admin: 03/16/18 10:14 Dose: 40 mg Ceftriaxone Sodium (Rocephin Iv 1 Gm Duplex) 50 mls @ 100 mls/hr IVPB Q12H [facility] PRN Reason: Protocol Last Admin: 03/16/18 05:05 Dose: 100 mls/hr Lactobacillus Acidophilus (Bacid Acidophilus) 1 cap PO BID [facility] Last Admin: 03/16/18 10:14 Dose: 1 cap Pantoprazole Sodium (Protonix Ec Tab) 40 mg PO DAILY [facility] Last Admin: 03/16/18 10:14 Dose: 40 mg Rosuvastatin Calcium (Crestor) 10 mg PO HS [facility] Last Admin: 03/15/18 21:38 Dose: 10 mg Tamsulosin HCl (Flomax) 0.4 mg PO DAILY [facility] Last Admin: 03/16/18 10:13 Dose: 0.4 mg Physical Exam - Constitutional Appears: Non-toxic, No Acute Distress - Head Exam Head Exam: ATRAUMATIC, NORMAL INSPECTION, NORMOCEPHALIC - Eye Exam Eye Exam: EOMI, Normal appearance - ENT Exam ENT Exam: Mucous Membranes Moist - Respiratory Exam Respiratory Exam: Clear to Auscultation Bilateral, NORMAL BREATHING PATTERN - Cardiovascular Exam Cardiovascular Exam: Irregular Rhythm, +S1, +S2 - GI/Abdominal Exam GI & Abdominal Exam: Normal Bowel Sounds, Soft. absent: Tenderness - Extremities Exam Extremities exam: Positive for: pedal edema, tenderness Additional comments: LE rash - Back Exam Back exam: NORMAL INSPECTION - Neurological Exam Neurological exam: Alert, Oriented x3 - Psychiatric Exam Psychiatric exam: Normal Affect, Normal Mood - Skin Skin Exam: Erythema, Intact, Rash, Warm Additional comments: LE edema Results - Vital Signs Recent Vital Signs: Last Vital Signs Temp 97.6 F 03/16/18 07:00 Pulse 62 03/16/18 07:00 Resp 20 03/16/18 07:00 BP 136/73 03/16/18 07:00 Pulse Ox 96 03/16/18 07:00 - Labs Result Diagrams: 03/15/18 10:58 03/15/18 10:58 Assessment & Plan - Assessment and Plan (Free Text) Assessment: Acute on Chronic CHF ECHO (10/02/17): moderately LVEF and mild LVH. severely dilated right and left atrium. markedly dilated RV and markedly reduced RV function. Severe pulmonary HTN. Mild aortic and mild mitral regurg repeat echo BNP: 924 A fib Carvedilol 3.125mg po BID ASA 325mg po daily HLD Crestor 10mg po HS Cellulitis Rocephin 1 g q12h Acidophilus po BID BPH Flomax .4mg po daily Discussed with Dr. Gray <Jose Elias Gray - Last Filed: 03/16/18 23:45> Meds - Medications Medications: Current Medications Acetaminophen (Tylenol 325mg Tab) 650 mg PO Q6 PRN PRN Reason: Pain, moderate (4-7) Last Admin: 03/16/18 13:58 Dose: 650 mg Albuterol Sulfate (Albuterol 0.083% Inhal Christina (2.5 Mg/3 Ml) Ud) 3 mg IH RQ6 PRN PRN Reason: Shortness of Breath Aspirin (Ecotrin) 325 mg PO DAILY [facility] Last Admin: 03/16/18 10:14 Dose: 325 mg Carvedilol (Coreg) 3.125 mg PO BID [facility] Last Admin: 03/16/18 17:03 Dose: 3.125 mg Enoxaparin Sodium (Lovenox) 40 mg SC DAILY [facility] Last Admin: 03/16/18 10:14 Dose: 40 mg Ceftriaxone Sodium (Rocephin Iv 1 Gm Duplex) 50 mls @ 100 mls/hr IVPB Q12H [facility] PRN Reason: Protocol Last Admin: 03/16/18 17:02 Dose: 100 mls/hr Lactobacillus Acidophilus (Bacid Acidophilus) 1 cap PO BID [facility] Last Admin: 03/16/18 17:03 Dose: 1 cap Pantoprazole Sodium (Protonix Ec Tab) 40 mg PO DAILY [facility] Last Admin: 03/16/18 10:14 Dose: 40 mg Rosuvastatin Calcium (Crestor) 10 mg PO HS [facility] Last Admin: 03/16/18 21:36 Dose: 10 mg Tamsulosin HCl (Flomax) 0.4 mg PO DAILY [facility] Last Admin: 03/16/18 10:13 Dose: 0.4 mg Results - Vital Signs Recent Vital Signs: Last Vital Signs Temp 98 F 03/16/18 16:10 Pulse 67 03/16/18 16:10 Resp 18 03/16/18 16:10 BP 135/74 03/16/18 16:10 Pulse Ox 97 03/16/18 16:10 - Labs Result Diagrams: 03/15/18 10:58 03/15/18 10:58 Assessment & Plan - Assessment and Plan (Free Text) Assessment: Patient seen and evaluated personally by nm Plan of care d/w the resident and as documented
--- NOTE | 2018-03-16 20:28 | CARD ---
APPROVED REPORT Date of service: 03/16/2018 EXAM: Two-dimensional and M-mode echocardiogram with Doppler and color Doppler. Other Information Quality : GoodRhythm : INDICATION Congestive Heart Failure 2D DIMENSIONS IVSd0.8 (0.7-1.1cm)LVDd4.9 (3.9-5.9cm) PWd0.9 (0.7-1.1cm)LVDs3.5 (2.5-4.0cm) FS (%) 29.5 %LVEF (%)56.3 (>50%) M-Mode DIMENSIONS Left Atrium (MM)4.73 (2.5-4.0cm)IVSd1.18 (0.7-1.1cm) Aortic Root3.44 (2.2-3.7cm)LVDd4.68 (4.0-5.6cm) Aortic Cusp Exc.1.75 (1.5-2.0cm)PWd1.15 (0.7-1.1cm) FS (%) 30 %LVDs3.27 (2.0-3.8cm) LVEF (%)57 (>50%) Aortic Valve AI P 1/2 [id number] Mitral Valve MV E Pwnbeuld42.0cm/sMV A Ychxobhp71.7cm/sE/A ratio3.3 TDI E/Lateral E'0.0E/Medial E'0.0 Tricuspid Valve TR Peak [id number]/sTR Peak Gr.[id number] LEFT VENTRICLE The left ventricle is normal size. There is normal left ventricular wall thickness. Left ventricle systolic function is normal. The Ejection Fraction is 55-60%. There is normal LV segmental wall motion. Transmitral Doppler flow pattern is Grade II-pseudonormal filling dynamics. There is no ventricular septal defect visualized. RIGHT VENTRICLE The right ventricle is moderately dilated. Systolic function is moderately reduced. ATRIA The left atrium is mildly dilated. The right atrium is moderately dilated. There is a moderate secundum type atrial septal defect. Qp/Qs 1.8 L to R shunt. AORTIC VALVE The aortic valve is mildly sclerotic. The aortic valve is tri-cuspid. There is mild aortic regurgitation. There is no aortic valvular stenosis. MITRAL VALVE Mitral annular calcification is borderline. There is no evidence of mitral valve prolapse. Mitral regurgitation is mild. TRICUSPID VALVE The tricuspid valve is normal in structure. There is moderate to severe tricuspid regurgitation. Right ventricular systolic pressure is estimated at greater than 60 mmHg. There is severe pulmonary hypertension. PULMONIC VALVE The pulmonic valve is not well visualized. There is mild to moderate pulmonic valvular regurgitation. GREAT VESSELS The aortic root is normal in size. The ascending aorta is Mildly dilated.4.1 The IVC is normal in size and collapses >50% with inspiration. PERICARDIAL EFFUSION There is no evidence of cardiac tamponade. There is a small circumferential pericardial effusion. <Conclusion> Left ventricle systolic function is normal. The Ejection Fraction is 55-60%. Transmitral Doppler flow pattern is Grade II-pseudonormal filling dynamics. There is mild aortic regurgitation. Mitral regurgitation is mild. There is severe pulmonary hypertension. There is a moderate secundum type atrial septal defect. Qp/Qs 1.9
--- NOTE | 2018-03-16 20:32 | CP.PCM.PN ---
Subjective - Date & Time of Evaluation Date of Evaluation: 03/16/18 Time of Evaluation: 20:32 - Subjective Subjective: Patient was seen by material scheduler Still having some itching and pain in the legs. Patient denies any chest pain. Slightly feeling better. The leg swelling is better. On examination: Vital signs stable. Bradycardia noted. Chest bilateral good air entry, minimal expiratory wheezing noted, no pedal edema no Assessment and recommendation: 87-year-old male with a history of hypertension intermittent atrial fibrillation GI bleed. Diastolic heart failure. Pedal edema. Patient admitted with decompensated diastolic heart failure most likely acute now. Responding with the Lasix. Continue the current treatment. Also has a cellulitis of the leg with significant excoriation. We will follow the patient. Objective - Vital Signs/Intake and Output Vital Signs (last 24 hours): Temp Pulse Resp BP Pulse Ox 98 F 67 18 135/74 97 03/16/18 16:10 03/16/18 16:10 03/16/18 16:10 03/16/18 16:10 03/16/18 16:10 Intake and Output: 03/16/18 03/17/18 18:59 06:59 Intake Total 360 Output Total 350 Balance 10 - Medications Medications: Current Medications Acetaminophen (Tylenol 325mg Tab) 650 mg PO Q6 PRN PRN Reason: Pain, moderate (4-7) Last Admin: 03/16/18 13:58 Dose: 650 mg Albuterol Sulfate (Albuterol 0.083% Inhal Christina (2.5 Mg/3 Ml) Ud) 3 mg IH RQ6 PRN PRN Reason: Shortness of Breath Aspirin (Ecotrin) 325 mg PO DAILY [facility] Last Admin: 03/16/18 10:14 Dose: 325 mg Carvedilol (Coreg) 3.125 mg PO BID [facility] Last Admin: 03/16/18 17:03 Dose: 3.125 mg Enoxaparin Sodium (Lovenox) 40 mg SC DAILY [facility] Last Admin: 03/16/18 10:14 Dose: 40 mg Ceftriaxone Sodium (Rocephin Iv 1 Gm Duplex) 50 mls @ 100 mls/hr IVPB Q12H [facility] PRN Reason: Protocol Last Admin: 03/16/18 17:02 Dose: 100 mls/hr Lactobacillus Acidophilus (Bacid Acidophilus) 1 cap PO BID [facility] Last Admin: 03/16/18 17:03 Dose: 1 cap Pantoprazole Sodium (Protonix Ec Tab) 40 mg PO DAILY [facility] Last Admin: 03/16/18 10:14 Dose: 40 mg Rosuvastatin Calcium (Crestor) 10 mg PO HS [facility] Last Admin: 03/15/18 21:38 Dose: 10 mg Tamsulosin HCl (Flomax) 0.4 mg PO DAILY [facility] Last Admin: 03/16/18 10:13 Dose: 0.4 mg - Labs Labs: 03/15/18 10:58 03/15/18 10:58
[2018-03-17] MEDS: cefTRIAXone IV 1 gm in Dextros 50 ML IVPB SCH ×2 (05:25→17:14)
--- NOTE | 2018-03-17 09:48 | CP.PCM.CON ---
History of Present Illness - History of Present Illness History of Present Illness: Podiatry Consult Note - Dr. Shannon/Noah 87M PMHx A fib, HTN, HLD, CHF, NSTEMI, BPH, Diverticulitis, CKD seen and examined at bedside regarding bilateral lower extremity redness and swelling ongoing for 1 month. 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 Patient is a poor historian. Patient complains of persistent lower extremity swelling that has progressively worsened; so was sent to ED by PMD for further evaluation. At present, patient c /o pain behind his legs. Admits to SOB, worsened with exertion. Denies N/V/F/D/ C. Review of Systems - Review of Systems All systems: reviewed and no additional remarkable complaints except (as per HPI ) Past Patient History - Infectious Disease Hx of Infectious Diseases: None - Past Medical History & Family History Past Medical History?: Yes - Past Social History Smoking Status: Former Smoker - CARDIAC Hx Atrial Fibrillation: Yes Hx Congestive Heart Failure: Yes Hx Hypercholesterolemia: Yes Hx Hypertension: Yes - PULMONARY Hx Respiratory Disorders: No - NEUROLOGICAL Hx Neurological Disorder: No - HEENT Hx HEENT Problems: Yes Hx Cataracts: Yes (left eye surgery 2012) - RENAL Hx Chronic Kidney Disease: Yes - ENDOCRINE/METABOLIC Hx Endocrine Disorders: No - HEMATOLOGICAL/ONCOLOGICAL Hx Blood Disorders: No - INTEGUMENTARY Hx Dermatological Problems: No - MUSCULOSKELETAL/RHEUMATOLOGICAL Hx Musculoskeletal Disorders: Yes Hx Arthritis: Yes Hx Falls: Yes Other/Comment: uses cane to ambulate - GASTROINTESTINAL Hx Gastrointestinal Disorders: Yes Hx Diverticulitis: Yes - GENITOURINARY/GYNECOLOGICAL Hx Genitourinary Disorders: Yes Hx Urinary Tract Infection: Yes Other/Comment: BPH - PSYCHIATRIC Hx Psychophysiologic Disorder: No Hx Substance Use: No - SURGICAL HISTORY Hx Surgeries: Yes Hx Cataract Extraction: Yes (2012) Hx Cardiac Catheterization: Yes (2002) - ANESTHESIA Hx Anesthesia: Yes Hx Anesthesia Reactions: No Hx Malignant Hyperthermia: No Meds Allergies/Adverse Reactions: Allergies Allergy/AdvReac Type Severity Reaction Status Date / Time No Known Allergies Allergy Verified 03/15/18 10:35 - Medications Medications: Current Medications Acetaminophen (Tylenol 325mg Tab) 650 mg PO Q6 PRN PRN Reason: Pain, moderate (4-7) Last Admin: 03/16/18 13:58 Dose: 650 mg Albuterol Sulfate (Albuterol 0.083% Inhal Christina (2.5 Mg/3 Ml) Ud) 3 mg IH RQ6 PRN PRN Reason: Shortness of Breath Aspirin (Ecotrin) 325 mg PO DAILY [facility] Last Admin: 03/16/18 10:14 Dose: 325 mg Carvedilol (Coreg) 3.125 mg PO BID [facility] Last Admin: 03/16/18 17:03 Dose: 3.125 mg Enoxaparin Sodium (Lovenox) 40 mg SC DAILY [facility] Last Admin: 03/16/18 10:14 Dose: 40 mg Ceftriaxone Sodium (Rocephin Iv 1 Gm Duplex) 50 mls @ 100 mls/hr IVPB Q12H [facility] PRN Reason: Protocol Last Admin: 03/17/18 05:25 Dose: 100 mls/hr Lactobacillus Acidophilus (Bacid Acidophilus) 1 cap PO BID [facility] Last Admin: 03/16/18 17:03 Dose: 1 cap Pantoprazole Sodium (Protonix Ec Tab) 40 mg PO DAILY [facility] Last Admin: 03/16/18 10:14 Dose: 40 mg Rosuvastatin Calcium (Crestor) 10 mg PO HS [facility] Last Admin: 03/16/18 21:36 Dose: 10 mg Tamsulosin HCl (Flomax) 0.4 mg PO DAILY [facility] Last Admin: 03/16/18 10:13 Dose: 0.4 mg Physical Exam - Constitutional Appears: Well, Non-toxic, No Acute Distress - Extremities Exam Additional comments: VASC: DP and PT pulses nonpalpable. CFT <3 seconds to digits. Temperature gradient warm to warm, no significant increase in areas of erythema. Nonpitting edema present to bilateral LE. NEURO: Gross sensation diminished. DERM: Erythema noted to bilateral legs extending from ankle joint to midcalf. No open lesions present. Moderate xerosis noted to bilateral LE. ORTHO: Pain upon calf squeeze. Muscle strength 5/5 for all dorsiflexors, plantarflexors, inverters, and everters. - Neurological Exam Neurological exam: Alert, Oriented x3 - Psychiatric Exam Psychiatric exam: Normal Affect, Normal Mood Results - Vital Signs Recent Vital Signs: Last Vital Signs Temp 98.0 F 03/17/18 07:35 Pulse 59 L 03/17/18 07:35 Resp 20 03/17/18 07:35 BP 142/75 03/17/18 07:35 Pulse Ox 95 03/17/18 07:35 - Labs Result Diagrams: 03/15/18 10:58 03/15/18 10:58 Assessment & Plan - Assessment and Plan (Free Text) Assessment: 87M with bilateral LE edema + erythema 2/2 acute cellulitis vs. CHF exacerbation Plan: Patient seen and evaluated alongside attending, Dr. Shannon VSS, WBC 10.4 yesterday f/u venous duplex r/o DVT Clotrimazole ordered - BID applications JIM wraps to bilateral LE Will continue to monitor Podiatry will follow
--- NOTE | 2018-03-17 10:13 | CP.PCM.PN ---
Subjective - Date & Time of Evaluation Date of Evaluation: 03/17/18 Time of Evaluation: 10:13 - Subjective Subjective: Podiatry Progress Note - Dr. Shannon/Noah 87M seen and evaluated at bedside this AM. Family and professional shopper present at bedside. HPI obtained by professional shopper and patient; pt poor historian. Patient c/o pain in bilateral LE which started shortly after application of Clotrimazole to legs. JIM wraps and clotrimazole removed, patient reports relief of symptoms. Denies N/V/F/D/C/SOB. Offers no other complaints. Objective - Vital Signs/Intake and Output Vital Signs (last 24 hours): Temp Pulse Resp BP Pulse Ox 98.0 F 59 L 20 142/75 95 03/17/18 07:35 03/17/18 07:35 03/17/18 07:35 03/17/18 07:35 03/17/18 07:35 Intake and Output: 03/17/18 03/17/18 06:59 18:59 Intake Total 450 Output Total 825 Balance -375 - Medications Medications: Current Medications Acetaminophen (Tylenol 325mg Tab) 650 mg PO Q6 PRN PRN Reason: Pain, moderate (4-7) Last Admin: 03/16/18 13:58 Dose: 650 mg Albuterol Sulfate (Albuterol 0.083% Inhal Christina (2.5 Mg/3 Ml) Ud) 3 mg IH RQ6 PRN PRN Reason: Shortness of Breath Aspirin (Ecotrin) 325 mg PO DAILY [facility] Last Admin: 03/16/18 10:14 Dose: 325 mg Carvedilol (Coreg) 3.125 mg PO BID [facility] Last Admin: 03/16/18 17:03 Dose: 3.125 mg Clotrimazole (Lotrimin 1%) 0 gm TOP BID [facility] Enoxaparin Sodium (Lovenox) 40 mg SC DAILY [facility] Last Admin: 03/16/18 10:14 Dose: 40 mg Ceftriaxone Sodium (Rocephin Iv 1 Gm Duplex) 50 mls @ 100 mls/hr IVPB Q12H [facility] PRN Reason: Protocol Last Admin: 03/17/18 05:25 Dose: 100 mls/hr Lactobacillus Acidophilus (Bacid Acidophilus) 1 cap PO BID [facility] Last Admin: 03/16/18 17:03 Dose: 1 cap Pantoprazole Sodium (Protonix Ec Tab) 40 mg PO DAILY [facility] Last Admin: 03/16/18 10:14 Dose: 40 mg Rosuvastatin Calcium (Crestor) 10 mg PO HS [facility] Last Admin: 03/16/18 21:36 Dose: 10 mg Tamsulosin HCl (Flomax) 0.4 mg PO DAILY [facility] Last Admin: 03/16/18 10:13 Dose: 0.4 mg - Labs Labs: 03/15/18 10:58 03/15/18 10:58 - Constitutional Appears: Well, Non-toxic, No Acute Distress - Extremities Exam Additional comments: VASC: DP and PT pulses nonpalpable. CFT <3 seconds to digits. Temperature gradient warm to warm, no significant increase in areas of erythema. Nonpitting edema present to bilateral LE. NEURO: Gross sensation diminished. DERM: Erythema noted to bilateral legs extending from ankle joint to midcalf. No open lesions present. Moderate xerosis noted to bilateral LE. ORTHO: Pain upon calf squeeze. Muscle strength 5/5 for all dorsiflexors, plantarflexors, inverters, and everters. - Neurological Exam Neurological Exam: Alert, Awake, Oriented x3 - Psychiatric Exam Psychiatric exam: Normal Affect, Normal Mood Assessment and Plan - Assessment and Plan (Free Text) Assessment: 87M with bilateral LE edema + erythema 2/2 acute cellulitis vs. CHF exacerbation Plan: Patient seen and evaluated Discussed with attending, Dr. Noah PIEDRA, WBC 8.1 f/u venous duplex r/o DVT D/c clotrimazole Will continue to monitor erythema Continue abx - Ceftriaxone Pain control per primary team Podiatry will follow
[2018-03-17] MEDS: Enoxaparin 40 mg Syringe SC SCH (10:15)
[2018-03-17] MEDS: Pantoprazole 40 mg EC Tab PO SCH (10:15)
[2018-03-17] MEDS: Aspirin 325 mg EC Tablets PO SCH (10:15)
[2018-03-17] MEDS: Lactobacillus Acidophilus 500 MU Cap PO SCH ×2 (10:15→17:14)
[2018-03-17 11:03] LABS: BASO # 0.1 K/uL (0.0-0.2); EOS # 0.3 K/uL (0.0-0.7); EOS % 3.1 % (0.0-4.0); HEMOGLOBIN 12.2 g/dL (12.0-18.0); LYMPH % 24.5 % (20.0-40.0); MEAN CELL VOLUME 90.7 fL (80.0-94.0); MEAN CORPUSCULAR HEMOGLOBIN 30.7 pg (27.0-31.0); MEAN CORPUSCULAR HGB CONC 33.8 g/dL (33.0-37.0); MEAN PLATELET VOLUME 7.3 fL (7.2-11.7); MONO # 0.9 K/uL (0.0-0.8); MONO % 11.5 % (0.0-10.0); NEUT # 4.8 K/uL (1.8-7.0); NEUT % 59.9 % (50.0-75.0); RBC 3.97 Mil/uL (4.40-5.90); RED CELL DISTRIBUTION WIDTH 13.5 % (11.5-14.5); WHITE BLOOD COUNT 8.1 K/uL (4.8-10.8)
[2018-03-17] MEDS: Clotrimazole 1% Cream(30 gm) TOP SCH ×2 (11:25→17:14)
[2018-03-17 11:28] LABS: BLOOD UREA NITROGEN 24 mg/dL (9-20); CALCIUM 9.3 mg/dl (8.6-10.4); GFR AFRICAN-AMERICAN > 60; GFR NON-AFRICAN AMERICAN > 60
--- NOTE | 2018-03-17 11:58 | CP.PCM.PN ---
<Malgorzata Kaba - Last Filed: 03/17/18 14:39> Subjective - Date & Time of Evaluation Date of Evaluation: 03/17/18 Time of Evaluation: 13:00 - Subjective Subjective: PGY2- Progress Note for Dr. Gray Patient seen and examined at bedside. Patient says he is feeling better and thinks he is "going in the right direction." Patient denies any chest pain, shortness of breath, abdominal pain, nausea, vomiting, constipation, or diarrhea. Objective - Vital Signs/Intake and Output Vital Signs (last 24 hours): Temp Pulse Resp BP Pulse Ox 98.0 F 59 L 20 142/75 95 03/17/18 07:35 03/17/18 07:35 03/17/18 07:35 03/17/18 07:35 03/17/18 07:35 Intake and Output: 03/17/18 03/17/18 06:59 18:59 Intake Total 450 Output Total 825 Balance -375 - Medications Medications: Current Medications Acetaminophen (Tylenol 325mg Tab) 650 mg PO Q6 PRN PRN Reason: Pain, moderate (4-7) Last Admin: 03/16/18 13:58 Dose: 650 mg Albuterol Sulfate (Albuterol 0.083% Inhal Christina (2.5 Mg/3 Ml) Ud) 3 mg IH RQ6 PRN PRN Reason: Shortness of Breath Aspirin (Ecotrin) 325 mg PO DAILY [facility] Last Admin: 03/17/18 10:15 Dose: 325 mg Carvedilol (Coreg) 3.125 mg PO BID [facility] Last Admin: 03/17/18 10:15 Dose: 3.125 mg Clotrimazole (Lotrimin 1%) 0 gm TOP BID [facility] Last Admin: 03/17/18 11:25 Dose: 1 appl Enoxaparin Sodium (Lovenox) 40 mg SC DAILY [facility] Last Admin: 03/17/18 10:15 Dose: 40 mg Ceftriaxone Sodium (Rocephin Iv 1 Gm Duplex) 50 mls @ 100 mls/hr IVPB Q12H [facility] PRN Reason: Protocol Last Admin: 03/17/18 05:25 Dose: 100 mls/hr Lactobacillus Acidophilus (Bacid Acidophilus) 1 cap PO BID [facility] Last Admin: 03/17/18 10:15 Dose: 1 cap Pantoprazole Sodium (Protonix Ec Tab) 40 mg PO DAILY [facility] Last Admin: 03/17/18 10:15 Dose: 40 mg Rosuvastatin Calcium (Crestor) 10 mg PO HS [facility] Last Admin: 03/16/18 21:36 Dose: 10 mg Tamsulosin HCl (Flomax) 0.4 mg PO DAILY [facility] Last Admin: 03/17/18 10:15 Dose: 0.4 mg - Labs Labs: 03/17/18 10:56 03/17/18 10:56 - Additional Findings Additional findings: - Constitutional Appears: Non-toxic, No Acute Distress - Head Exam Head Exam: ATRAUMATIC, NORMAL INSPECTION, NORMOCEPHALIC - Eye Exam Eye Exam: EOMI, Normal appearance - ENT Exam ENT Exam: Mucous Membranes Moist - Respiratory Exam Respiratory Exam: Clear to Auscultation Bilateral, NORMAL BREATHING PATTERN - Cardiovascular Exam Cardiovascular Exam: Irregular Rhythm, +S1, +S2 - GI/Abdominal Exam GI & Abdominal Exam: Normal Bowel Sounds, Soft. absent: Tenderness - Extremities Exam Extremities exam: Positive for: pedal edema, tenderness Additional comments: LE rash - Back Exam Back exam: NORMAL INSPECTION - Neurological Exam Neurological exam: Alert, Oriented x3 - Psychiatric Exam Psychiatric exam: Normal Affect, Normal Mood - Skin Skin Exam: Erythema, Intact, Rash, Warm Additional comments: LE edema Assessment and Plan - Assessment and Plan (Free Text) Assessment: Acute on Chronic CHF with Preserved EF ECHO (10/02/17): moderately LVEF and mild LVH. severely dilated right and left atrium. markedly dilated RV and markedly reduced RV function. Severe pulmonary HTN. Mild aortic and mild mitral regurg BNP 924 ECHO (03/16/18): LVEF: 55-60%, grade II pseudonormal filling dynamics. mild aortic regurg. mitral regurg is mild. severe pulm HTN, moderate secundum type atrial septal defect medical management A fib Carvedilol 3.125mg po BID ASA 325mg po daily HLD Crestor 10mg po HS Cellulitis Rocephin 1 g q12h Acidophilus po BID BPH Flomax .4mg po daily Discussed with Dr. Gray <Jose Elias Gray - Last Filed: 03/17/18 22:50> Objective - Vital Signs/Intake and Output Vital Signs (last 24 hours): Temp Pulse Resp BP Pulse Ox 98.2 F 68 20 131/72 96 03/17/18 15:51 03/17/18 16:00 03/17/18 15:51 03/17/18 15:51 03/17/18 15:51 - Medications Medications: Current Medications Acetaminophen (Tylenol 325mg Tab) 650 mg PO Q6 PRN PRN Reason: Pain, moderate (4-7) Last Admin: 03/16/18 13:58 Dose: 650 mg Albuterol Sulfate (Albuterol 0.083% Inhal Christina (2.5 Mg/3 Ml) Ud) 3 mg IH RQ6 PRN PRN Reason: Shortness of Breath Aspirin (Ecotrin) 325 mg PO DAILY [facility] Last Admin: 03/17/18 10:15 Dose: 325 mg Carvedilol (Coreg) 3.125 mg PO BID [facility] Last Admin: 03/17/18 17:14 Dose: 3.125 mg Clotrimazole (Lotrimin 1%) 0 gm TOP BID [facility] Last Admin: 03/17/18 17:14 Dose: Not Given Enoxaparin Sodium (Lovenox) 40 mg SC DAILY [facility] Last Admin: 03/17/18 10:15 Dose: 40 mg Ceftriaxone Sodium (Rocephin Iv 1 Gm Duplex) 50 mls @ 100 mls/hr IVPB Q12H [facility] PRN Reason: Protocol Last Admin: 03/17/18 17:14 Dose: 100 mls/hr Lactic Acid (Lac-Hydrin 12% Lotion (225 G)) 1 gm EXT DAILY [facility] Lactobacillus Acidophilus (Bacid Acidophilus) 1 cap PO BID [facility] Last Admin: 03/17/18 17:14 Dose: 1 cap Pantoprazole Sodium (Protonix Ec Tab) 40 mg PO DAILY [facility] Last Admin: 03/17/18 10:15 Dose: 40 mg Rosuvastatin Calcium (Crestor) 10 mg PO HS [facility] Last Admin: 03/17/18 21:31 Dose: 10 mg Tamsulosin HCl (Flomax) 0.4 mg PO DAILY [facility] Last Admin: 03/17/18 10:15 Dose: 0.4 mg - Labs Labs: 03/17/18 10:56 03/17/18 10:56 Assessment and Plan - Assessment and Plan (Free Text) Assessment: Patient seen and evaluated personally by me. Plan of care d/w the medical billing representative and as documented
[2018-03-18] MEDS: cefTRIAXone IV 1 gm in Dextros 50 ML IVPB SCH ×2 (06:06→18:22)
[2018-03-18] MEDS: Lactobacillus Acidophilus 500 MU Cap PO SCH ×2 (09:06→18:22)
[2018-03-18] MEDS: Aspirin 325 mg EC Tablets PO SCH (09:06)
[2018-03-18] MEDS: Pantoprazole 40 mg EC Tab PO SCH (09:06)
[2018-03-18] MEDS: Enoxaparin 40 mg Syringe SC SCH (09:07)
[2018-03-18] MEDS: Ammonium Lactate 12% Lotion (225 g) EXT SCH (09:07)
[2018-03-18] MEDS: Clotrimazole 1% Cream(30 gm) TOP SCH ×2 (09:08→18:23)
--- NOTE | 2018-03-18 10:50 | VASCLAB ---
Date of service: 03/16/2018 PROCEDURE: Lower Extremity Venous Duplex Exam. HISTORY: dvt PRIORS: None. TECHNIQUE: Bilateral common femoral, femoral, popliteal and posterior tibial, peroneal and great saphenous veins were evaluated. Flow was assessed with color Doppler, compressibility, assessment of phasic flow and augmentation response. Report prepared by MENDOZA Hawthorne, RVT FINDINGS: RIGHT: 1. Common Femoral Vein: 1.1. Compressibility - Fully compressible: Thrombus - None : Flow - Phasic: Augmentation -Normal: Reflux - None. 2. Femoral Vein: 2.1. Compressibility - Fully compressible: Thrombus - None : Flow - Phasic: Augmentation -Normal: Reflux - None. 3. Popliteal Vein: 3.1. Compressibility - Fully compressible: Thrombus - None : Flow - Phasic: Augmentation -Normal: Reflux - None. 4. Posterior Tibial Vein: 4.1. Compressibility - : Thrombus - : Flow - : Augmentation -: Reflux - . 5. Peroneal Vein: 5.1. Compressibility - : Thrombus - : Flow - : Augmentation -: Reflux - . 6. Great Saphenous Vein: 6.1. Compressibility - Fully compressible: Thrombus - None: Flow - Phasic: Augmentation - Normal: Reflux - None. LEFT: 1. Common Femoral Vein: 1.1. Compressibility - Fully compressible: Thrombus - None: Flow - Phasic: Augmentation -Normal: Reflux - None. 2. Femoral Vein: 2.1. Compressibility - Fully compressible: Thrombus - None: Flow - Phasic: Augmentation -Normal: Reflux - None. 3. Popliteal Vein: 3.1. Compressibility - Fully compressible: Thrombus - None : Flow - Phasic: Augmentation -Normal: Reflux - None. 4. Posterior Tibial Vein: 4.1. Compressibility - : Thrombus - : Flow - : Augmentation -: Reflux - . 5. Peroneal Vein: 5.1. Compressibility - : Thrombus - : Flow - : Augmentation -: Reflux - . 6. Great Saphenous Vein: 6.1. Compressibility - Fully compressible: Thrombus - None: Flow - Phasic: Augmentation - Normal: Reflux - None. OTHER FINDINGS: Due to bandage on the calves, bilateral peroneal and posterior tibial vein are not visualized. IMPRESSION: Right: No evidence of deep or superficial vein thrombosis of the right lower extremity. Normal valve function noted of the right side. Left: No evidence of deep or superficial vein thrombosis of the left lower extremity. Normal valve function noted of the left side.
--- NOTE | 2018-03-18 15:46 | CP.PCM.PN ---
Subjective - Date & Time of Evaluation Date of Evaluation: 03/18/18 Time of Evaluation: 15:43 - Subjective Subjective: Podiatry Progress Note - Dr. Shannon/Noah 87M seen and evaluated at bedside this AM for bilateral LE cellulitis. Croze Cutter present at bedside. Patient reports lower extremity pain improving. Clotrimazole and JIM wraps discontinued yesterday due to adverse reaction. Denies N/V/F/D/C/SOB. Offers no other complaints. Objective - Vital Signs/Intake and Output Vital Signs (last 24 hours): Temp Pulse Resp BP Pulse Ox 97.4 F L 70 20 110/69 96 03/18/18 07:50 03/18/18 11:50 03/18/18 07:50 03/18/18 07:50 03/18/18 07:50 - Medications Medications: Current Medications Acetaminophen (Tylenol 325mg Tab) 650 mg PO Q6 PRN PRN Reason: Pain, moderate (4-7) Last Admin: 03/18/18 01:43 Dose: 650 mg Albuterol Sulfate (Albuterol 0.083% Inhal Christina (2.5 Mg/3 Ml) Ud) 3 mg IH RQ6 PRN PRN Reason: Shortness of Breath Aspirin (Ecotrin) 325 mg PO DAILY [facility] Last Admin: 03/18/18 09:06 Dose: 325 mg Carvedilol (Coreg) 3.125 mg PO BID [facility] Last Admin: 03/18/18 09:06 Dose: 3.125 mg Clotrimazole (Lotrimin 1%) 0 gm TOP BID [facility] Last Admin: 03/18/18 09:08 Dose: 1 appl Enoxaparin Sodium (Lovenox) 40 mg SC DAILY [facility] Last Admin: 03/18/18 09:07 Dose: 40 mg Furosemide (Lasix) 40 mg PO DAILY [facility] Ceftriaxone Sodium (Rocephin Iv 1 Gm Duplex) 50 mls @ 100 mls/hr IVPB Q12H [facility] PRN Reason: Protocol Last Admin: 03/18/18 06:06 Dose: 100 mls/hr Lactic Acid (Lac-Hydrin 12% Lotion (225 G)) 1 gm EXT DAILY [facility] Last Admin: 03/18/18 09:07 Dose: 1 gm Lactobacillus Acidophilus (Bacid Acidophilus) 1 cap PO BID [facility] Last Admin: 03/18/18 09:06 Dose: 1 cap Pantoprazole Sodium (Protonix Ec Tab) 40 mg PO DAILY [facility] Last Admin: 03/18/18 09:06 Dose: 40 mg Rosuvastatin Calcium (Crestor) 10 mg PO HS [facility] Last Admin: 03/17/18 21:31 Dose: 10 mg Tamsulosin HCl (Flomax) 0.4 mg PO DAILY [facility] Last Admin: 03/18/18 09:06 Dose: 0.4 mg - Labs Labs: 03/17/18 10:56 03/17/18 10:56 - Constitutional Appears: Well, Non-toxic, No Acute Distress - Extremities Exam Additional comments: VASC: DP and PT pulses nonpalpable. CFT <3 seconds to digits. Temperature gradient warm to warm, no significant increase in areas of erythema. Nonpitting edema present to bilateral LE, decreasing NEURO: Gross sensation diminished. DERM: Erythema noted to bilateral legs extending from ankle joint to midcalf, decreasing. No open lesions present. Severe xerosis noted to bilateral LE. ORTHO: Pain upon calf squeeze. Muscle strength 5/5 for all dorsiflexors, plantarflexors, inverters, and everters. - Neurological Exam Neurological Exam: Alert, Awake, Oriented x3 - Psychiatric Exam Psychiatric exam: Normal Affect, Normal Mood Assessment and Plan - Assessment and Plan (Free Text) Assessment: 87M with bilateral LE edema + erythema 2/2 acute cellulitis vs. CHF exacerbation Plan: Patient seen and evaluated alongside attending, Dr. Zamora HR 38 running afib yesterday - asymptomatic Bilateral LE venous duplex - negative for DVT Erythema improving, will continue to monitor Continue Ammonium Lactate lotion Continue abx - Ceftriaxone Pain control per primary team Podiatry will follow
[2018-03-19] MEDS: cefTRIAXone IV 1 gm in Dextros 50 ML IVPB SCH ×2 (05:38→17:29)
[2018-03-19] MEDS: Aspirin 325 mg EC Tablets PO SCH (09:05)
[2018-03-19] MEDS: Pantoprazole 40 mg EC Tab PO SCH (09:05)
[2018-03-19] MEDS: Lactobacillus Acidophilus 500 MU Cap PO SCH ×2 (09:06→17:29)
[2018-03-19] MEDS: Enoxaparin 40 mg Syringe SC SCH (09:06)
[2018-03-19] MEDS: Clotrimazole 1% Cream(30 gm) TOP SCH ×2 (09:06→17:29)
[2018-03-19] MEDS: Ammonium Lactate 12% Lotion (225 g) EXT SCH (09:06)
--- NOTE | 2018-03-19 13:54 | CP.PCM.PN ---
Subjective - Date & Time of Evaluation Date of Evaluation: 03/19/18 Time of Evaluation: 13:53 - Subjective Subjective: Podiatry Progress Note - Dr. Shannon/Noah 87M seen and evaluated at bedside with Dr. Zamora this AM for bilateral LE cellulitis. Patient reports lower extremity pain improving. Clotrimazole and JIM wraps discontinued yesterday due to adverse reaction. Denies N/V/F/D/C/SOB. Offers no other complaints. Objective - Vital Signs/Intake and Output Vital Signs (last 24 hours): Temp Pulse Resp BP Pulse Ox 98.2 F 65 20 113/67 95 03/19/18 07:00 03/19/18 12:01 03/19/18 07:00 03/19/18 09:06 03/19/18 07:00 Intake and Output: 03/19/18 03/19/18 06:59 18:59 Output Total 300 Balance -300 - Medications Medications: Current Medications Acetaminophen (Tylenol 325mg Tab) 650 mg PO Q6 PRN PRN Reason: Pain, moderate (4-7) Last Admin: 03/18/18 01:43 Dose: 650 mg Albuterol Sulfate (Albuterol 0.083% Inhal Christina (2.5 Mg/3 Ml) Ud) 3 mg IH RQ6 PRN PRN Reason: Shortness of Breath Aspirin (Ecotrin) 325 mg PO DAILY [facility] Last Admin: 03/19/18 09:05 Dose: 325 mg Carvedilol (Coreg) 3.125 mg PO BID [facility] Last Admin: 03/19/18 09:05 Dose: 3.125 mg Clotrimazole (Lotrimin 1%) 0 gm TOP BID [facility] Last Admin: 03/19/18 09:06 Dose: 1 appl Enoxaparin Sodium (Lovenox) 40 mg SC DAILY [facility] Last Admin: 03/19/18 09:06 Dose: 40 mg Furosemide (Lasix) 40 mg PO DAILY [facility] Last Admin: 03/19/18 09:06 Dose: 40 mg Ceftriaxone Sodium (Rocephin Iv 1 Gm Duplex) 50 mls @ 100 mls/hr IVPB Q12H [facility] PRN Reason: Protocol Last Admin: 03/19/18 05:38 Dose: 100 mls/hr Lactic Acid (Lac-Hydrin 12% Lotion (225 G)) 1 gm EXT DAILY [facility] Last Admin: 03/19/18 09:06 Dose: 1 gm Lactobacillus Acidophilus (Bacid Acidophilus) 1 cap PO BID [facility] Last Admin: 03/19/18 09:06 Dose: 1 cap Pantoprazole Sodium (Protonix Ec Tab) 40 mg PO DAILY [facility] Last Admin: 03/19/18 09:05 Dose: 40 mg Rosuvastatin Calcium (Crestor) 10 mg PO HS [facility] Last Admin: 03/18/18 21:35 Dose: 10 mg Tamsulosin HCl (Flomax) 0.4 mg PO DAILY [facility] Last Admin: 03/19/18 09:05 Dose: 0.4 mg - Labs Labs: 03/17/18 10:56 03/17/18 10:56 - Constitutional Appears: Well, Non-toxic, No Acute Distress - Head Exam Head Exam: ATRAUMATIC, NORMOCEPHALIC - Extremities Exam Additional comments: VASC: DP and PT pulses nonpalpable. CFT <3 seconds to digits. Temperature gradient warm to warm, no significant increase in areas of erythema. Nonpitting edema present to bilateral LE, decreasing NEURO: Gross sensation diminished. DERM: Erythema noted to bilateral legs extending from ankle joint to midcalf, decreasing. No open lesions present. Severe xerosis noted to bilateral LE. ORTHO: Pain upon calf squeeze. Muscle strength 5/5 for all dorsiflexors, plantarflexors, inverters, and everters. - Neurological Exam Neurological Exam: Alert, Awake, Oriented x3 - Psychiatric Exam Psychiatric exam: Normal Affect, Normal Mood Assessment and Plan - Assessment and Plan (Free Text) Assessment: 87M with bilateral LE edema + erythema 2/2 acute cellulitis vs. CHF exacerbation Plan: Patient seen and evaluated alongside attending, Dr. Zamora Bilateral LE venous duplex - negative for DVT Erythema improving, will continue to monitor Continue Ammonium Lactate lotion Continue abx - Ceftriaxone Pain control per primary team Podiatry will follow while patient is in house
--- NOTE | 2018-03-19 19:38 | CP.PCM.PN ---
Subjective - Date & Time of Evaluation Date of Evaluation: 03/18/18 Time of Evaluation: 15:10 - Subjective Subjective: Patient seen and examined at bedside. Patient denies chest pain and dyspnea Physical Examination - Additional Findings Additional findings: - Constitutional Appears: Non-toxic, No Acute Distress - Head Exam Head Exam: ATRAUMATIC, NORMAL INSPECTION, NORMOCEPHALIC - Eye Exam Eye Exam: EOMI, Normal appearance - ENT Exam ENT Exam: Mucous Membranes Moist - Respiratory Exam Respiratory Exam: Clear to Auscultation Bilateral, NORMAL BREATHING PATTERN - Cardiovascular Exam Cardiovascular Exam: Irregular Rhythm, +S1, +S2 - GI/Abdominal Exam GI & Abdominal Exam: Normal Bowel Sounds, Soft. absent: Tenderness - Extremities Exam Extremities exam: Positive for: pedal edema, tenderness Additional comments: LE rash - Back Exam Back exam: NORMAL INSPECTION - Neurological Exam Neurological exam: Alert, Oriented x3 - Psychiatric Exam Psychiatric exam: Normal Affect, Normal Mood - Skin Skin Exam: Erythema, Intact, Rash, Warm Additional comments: LE edema Objective - Vital Signs/Intake and Output Vital Signs (last 24 hours): Temp Pulse Resp BP Pulse Ox 97.3 F L 62 18 121/65 96 03/19/18 15:00 03/19/18 15:00 03/19/18 15:00 03/19/18 15:00 03/19/18 15:00 - Medications Medications: Current Medications Acetaminophen (Tylenol 325mg Tab) 650 mg PO Q6 PRN PRN Reason: Pain, moderate (4-7) Last Admin: 03/18/18 01:43 Dose: 650 mg Albuterol Sulfate (Albuterol 0.083% Inhal Christina (2.5 Mg/3 Ml) Ud) 3 mg IH RQ6 PRN PRN Reason: Shortness of Breath Aspirin (Ecotrin) 325 mg PO DAILY [facility] Last Admin: 03/19/18 09:05 Dose: 325 mg Carvedilol (Coreg) 3.125 mg PO BID [facility] Last Admin: 03/19/18 17:29 Dose: 3.125 mg Clotrimazole (Lotrimin 1%) 0 gm TOP BID [facility] Last Admin: 03/19/18 17:29 Dose: 1 appl Enoxaparin Sodium (Lovenox) 40 mg SC DAILY [facility] Last Admin: 03/19/18 09:06 Dose: 40 mg Furosemide (Lasix) 40 mg PO DAILY [facility] Last Admin: 03/19/18 09:06 Dose: 40 mg Ceftriaxone Sodium (Rocephin Iv 1 Gm Duplex) 50 mls @ 100 mls/hr IVPB Q12H [facility] PRN Reason: Protocol Last Admin: 03/19/18 17:29 Dose: 100 mls/hr Lactic Acid (Lac-Hydrin 12% Lotion (225 G)) 1 gm EXT DAILY [facility] Last Admin: 03/19/18 09:06 Dose: 1 gm Lactobacillus Acidophilus (Bacid Acidophilus) 1 cap PO BID [facility] Last Admin: 03/19/18 17:29 Dose: 1 cap Pantoprazole Sodium (Protonix Ec Tab) 40 mg PO DAILY [facility] Last Admin: 03/19/18 09:05 Dose: 40 mg Rosuvastatin Calcium (Crestor) 10 mg PO HS [facility] Last Admin: 03/18/18 21:35 Dose: 10 mg Tamsulosin HCl (Flomax) 0.4 mg PO DAILY [facility] Last Admin: 03/19/18 09:05 Dose: 0.4 mg - Labs Labs: 03/17/18 10:56 03/17/18 10:56 Assessment and Plan - Assessment and Plan (Free Text) Assessment: ECHO (10/02/17): moderately LVEF and mild LVH. severely dilated right and left atrium. markedly dilated RV and markedly reduced RV function. Severe pulmonary HTN. Mild aortic and mild mitral regurg BNP 924 ECHO (03/16/18): LVEF: 55-60%, grade II pseudonormal filling dynamics. mild aortic regurg. mitral regurg is mild. severe pulm HTN, moderate secundum type atrial septal defect medical management A fib Carvedilol 3.125mg po BID ASA 325mg po daily HLD Crestor 10mg po HS Cellulitis Rocephin 1 g q12h Acidophilus po BID BPH Flomax .4mg po daily
--- NOTE | 2018-03-19 19:39 | CP.PCM.PN ---
Subjective - Date & Time of Evaluation Date of Evaluation: 03/19/18 Time of Evaluation: 09:30 - Subjective Subjective: Patient seen and examined at bedside. Patient denies chest pain and dyspnea Physical Examination - Additional Findings Additional findings: - Constitutional Appears: Non-toxic, No Acute Distress - Head Exam Head Exam: ATRAUMATIC, NORMAL INSPECTION, NORMOCEPHALIC - Eye Exam Eye Exam: EOMI, Normal appearance - ENT Exam ENT Exam: Mucous Membranes Moist - Respiratory Exam Respiratory Exam: Clear to Auscultation Bilateral, NORMAL BREATHING PATTERN - Cardiovascular Exam Cardiovascular Exam: Irregular Rhythm, +S1, +S2 - GI/Abdominal Exam GI & Abdominal Exam: Normal Bowel Sounds, Soft. absent: Tenderness - Extremities Exam Extremities exam: Positive for: pedal edema, tenderness Additional comments: LE rash - Back Exam Back exam: NORMAL INSPECTION - Neurological Exam Neurological exam: Alert, Oriented x3 - Psychiatric Exam Psychiatric exam: Normal Affect, Normal Mood - Skin Skin Exam: Erythema, Intact, Rash, Warm Additional comments: LE edema Objective - Vital Signs/Intake and Output Vital Signs (last 24 hours): Temp Pulse Resp BP Pulse Ox 97.3 F L 62 18 121/65 96 03/19/18 15:00 03/19/18 15:00 03/19/18 15:00 03/19/18 15:00 03/19/18 15:00 - Medications Medications: Current Medications Acetaminophen (Tylenol 325mg Tab) 650 mg PO Q6 PRN PRN Reason: Pain, moderate (4-7) Last Admin: 03/18/18 01:43 Dose: 650 mg Albuterol Sulfate (Albuterol 0.083% Inhal Christina (2.5 Mg/3 Ml) Ud) 3 mg IH RQ6 PRN PRN Reason: Shortness of Breath Aspirin (Ecotrin) 325 mg PO DAILY [facility] Last Admin: 03/19/18 09:05 Dose: 325 mg Carvedilol (Coreg) 3.125 mg PO BID [facility] Last Admin: 03/19/18 17:29 Dose: 3.125 mg Clotrimazole (Lotrimin 1%) 0 gm TOP BID [facility] Last Admin: 03/19/18 17:29 Dose: 1 appl Enoxaparin Sodium (Lovenox) 40 mg SC DAILY [facility] Last Admin: 03/19/18 09:06 Dose: 40 mg Furosemide (Lasix) 40 mg PO DAILY [facility] Last Admin: 03/19/18 09:06 Dose: 40 mg Ceftriaxone Sodium (Rocephin Iv 1 Gm Duplex) 50 mls @ 100 mls/hr IVPB Q12H [facility] PRN Reason: Protocol Last Admin: 03/19/18 17:29 Dose: 100 mls/hr Lactic Acid (Lac-Hydrin 12% Lotion (225 G)) 1 gm EXT DAILY [facility] Last Admin: 03/19/18 09:06 Dose: 1 gm Lactobacillus Acidophilus (Bacid Acidophilus) 1 cap PO BID [facility] Last Admin: 03/19/18 17:29 Dose: 1 cap Pantoprazole Sodium (Protonix Ec Tab) 40 mg PO DAILY [facility] Last Admin: 03/19/18 09:05 Dose: 40 mg Rosuvastatin Calcium (Crestor) 10 mg PO HS [facility] Last Admin: 03/18/18 21:35 Dose: 10 mg Tamsulosin HCl (Flomax) 0.4 mg PO DAILY [facility] Last Admin: 03/19/18 09:05 Dose: 0.4 mg - Labs Labs: 03/17/18 10:56 03/17/18 10:56 Assessment and Plan - Assessment and Plan (Free Text) Assessment: ECHO (10/02/17): moderately LVEF and mild LVH. severely dilated right and left atrium. markedly dilated RV and markedly reduced RV function. Severe pulmonary HTN. Mild aortic and mild mitral regurg BNP 924 ECHO (03/16/18): LVEF: 55-60%, grade II pseudonormal filling dynamics. mild aortic regurg. mitral regurg is mild. severe pulm HTN, moderate secundum type atrial septal defect medical management A fib Carvedilol 3.125mg po BID ASA 325mg po daily HLD Crestor 10mg po HS Cellulitis Rocephin 1 g q12h Acidophilus po BID BPH Flomax .4mg po daily
[2018-03-20 01:19] VITALS: RESP 20
[2018-03-20] MEDS: cefTRIAXone IV 1 gm in Dextros 50 ML IVPB SCH ×2 (05:40→17:58)
--- NOTE | 2018-03-20 09:13 | CP.PCM.PN ---
Subjective - Date & Time of Evaluation Date of Evaluation: 03/17/18 Time of Evaluation: 12:31 - Subjective Subjective: nnnnnnnPatient was seen by settlement worker Still having some itching and pain in the legs. Patient denies any chest pain. Slightly feeling better. The leg swelling is better. On examination: Vital signs stable. Bradycardia noted. Chest bilateral good air entry, minimal expiratory wheezing noted, no pedal edema no Assessment and recommendation: 87-year-old male with a history of hypertension intermittent atrial fibrillation GI bleed. Diastolic heart failure. Pedal edema. Patient admitted with decompensated diastolic heart failure most likely acute now. Responding with the Lasix. Continue the current treatment. Also has a cellulitis of the leg with significant excoriation. We will follow the patient. Objective - Vital Signs/Intake and Output Vital Signs (last 24 hours): Temp Pulse Resp BP Pulse Ox 98.2 F 77 20 164/78 H 96 03/20/18 07:00 03/20/18 08:00 03/20/18 07:00 03/20/18 07:00 03/20/18 07:00 Intake and Output: 03/20/18 03/20/18 06:59 18:59 Intake Total 110 Output Total 2400 Balance -2290 - Medications Medications: Current Medications Acetaminophen (Tylenol 325mg Tab) 650 mg PO Q6 PRN PRN Reason: Pain, moderate (4-7) Last Admin: 03/18/18 01:43 Dose: 650 mg Albuterol Sulfate (Albuterol 0.083% Inhal Christina (2.5 Mg/3 Ml) Ud) 3 mg IH RQ6 PRN PRN Reason: Shortness of Breath Aspirin (Ecotrin) 325 mg PO DAILY [facility] Last Admin: 03/19/18 09:05 Dose: 325 mg Carvedilol (Coreg) 3.125 mg PO BID [facility] Last Admin: 03/19/18 17:29 Dose: 3.125 mg Clotrimazole (Lotrimin 1%) 0 gm TOP BID [facility] Last Admin: 03/19/18 17:29 Dose: 1 appl Enoxaparin Sodium (Lovenox) 40 mg SC DAILY [facility] Last Admin: 03/19/18 09:06 Dose: 40 mg Furosemide (Lasix) 40 mg PO DAILY [facility] Last Admin: 03/19/18 09:06 Dose: 40 mg Ceftriaxone Sodium (Rocephin Iv 1 Gm Duplex) 50 mls @ 100 mls/hr IVPB Q12H [facility] PRN Reason: Protocol Last Admin: 03/20/18 05:40 Dose: 100 mls/hr Lactic Acid (Lac-Hydrin 12% Lotion (225 G)) 1 gm EXT DAILY [facility] Last Admin: 03/19/18 09:06 Dose: 1 gm Lactobacillus Acidophilus (Bacid Acidophilus) 1 cap PO BID [facility] Last Admin: 03/19/18 17:29 Dose: 1 cap Pantoprazole Sodium (Protonix Ec Tab) 40 mg PO DAILY [facility] Last Admin: 03/19/18 09:05 Dose: 40 mg Rosuvastatin Calcium (Crestor) 10 mg PO HS [facility] Last Admin: 03/19/18 21:33 Dose: 10 mg Tamsulosin HCl (Flomax) 0.4 mg PO DAILY [facility] Last Admin: 03/19/18 09:05 Dose: 0.4 mg - Labs Labs: 03/17/18 10:56 03/17/18 10:56
--- NOTE | 2018-03-20 09:14 | CP.PCM.PN ---
Subjective - Date & Time of Evaluation Date of Evaluation: 03/20/18 Time of Evaluation: 09:14 - Subjective Subjective: today pt is doing well c/o pain in the legs no chest pain eating ok spoke to family yesterday will need rehab eval and snf eval Objective - Vital Signs/Intake and Output Vital Signs (last 24 hours): Temp Pulse Resp BP Pulse Ox 98.2 F 77 20 164/78 H 96 03/20/18 07:00 03/20/18 08:00 03/20/18 07:00 03/20/18 07:00 03/20/18 07:00 Intake and Output: 03/20/18 03/20/18 06:59 18:59 Intake Total 110 Output Total 2400 Balance -2290 - Medications Medications: Current Medications Acetaminophen (Tylenol 325mg Tab) 650 mg PO Q6 PRN PRN Reason: Pain, moderate (4-7) Last Admin: 03/18/18 01:43 Dose: 650 mg Albuterol Sulfate (Albuterol 0.083% Inhal Christina (2.5 Mg/3 Ml) Ud) 3 mg IH RQ6 PRN PRN Reason: Shortness of Breath Aspirin (Ecotrin) 325 mg PO DAILY [facility] Last Admin: 03/19/18 09:05 Dose: 325 mg Carvedilol (Coreg) 3.125 mg PO BID [facility] Last Admin: 03/19/18 17:29 Dose: 3.125 mg Clotrimazole (Lotrimin 1%) 0 gm TOP BID [facility] Last Admin: 03/19/18 17:29 Dose: 1 appl Enoxaparin Sodium (Lovenox) 40 mg SC DAILY [facility] Last Admin: 03/19/18 09:06 Dose: 40 mg Furosemide (Lasix) 40 mg PO DAILY [facility] Last Admin: 03/19/18 09:06 Dose: 40 mg Ceftriaxone Sodium (Rocephin Iv 1 Gm Duplex) 50 mls @ 100 mls/hr IVPB Q12H [facility] PRN Reason: Protocol Last Admin: 03/20/18 05:40 Dose: 100 mls/hr Lactic Acid (Lac-Hydrin 12% Lotion (225 G)) 1 gm EXT DAILY [facility] Last Admin: 03/19/18 09:06 Dose: 1 gm Lactobacillus Acidophilus (Bacid Acidophilus) 1 cap PO BID [facility] Last Admin: 03/19/18 17:29 Dose: 1 cap Pantoprazole Sodium (Protonix Ec Tab) 40 mg PO DAILY [facility] Last Admin: 03/19/18 09:05 Dose: 40 mg Rosuvastatin Calcium (Crestor) 10 mg PO HS [facility] Last Admin: 03/19/18 21:33 Dose: 10 mg Tamsulosin HCl (Flomax) 0.4 mg PO DAILY [facility] Last Admin: 03/19/18 09:05 Dose: 0.4 mg - Labs Labs: 03/17/18 10:56 03/17/18 10:56
--- NOTE | 2018-03-20 09:14 | CP.PCM.PN ---
Subjective - Date & Time of Evaluation Date of Evaluation: 03/18/18 Time of Evaluation: 12:32 - Subjective Subjective: Still having some redness in the legs. But slightly better. Complaining of resting pain. On examination: Vital signs stable. Bradycardia noted. Chest bilateral good air entry, minimal expiratory wheezing noted, no pedal edema no Assessment and recommendation: 87-year-old male with a history of hypertension intermittent atrial fibrillation GI bleed. Diastolic heart failure. Pedal edema. Patient admitted with decompensated diastolic heart failure most likely acute now. Responding with the Lasix. As the patient have a resting pain, I suggested to have arterial Doppler. Objective - Vital Signs/Intake and Output Vital Signs (last 24 hours): Temp Pulse Resp BP Pulse Ox 98.2 F 77 20 164/78 H 96 03/20/18 07:00 03/20/18 08:00 03/20/18 07:00 03/20/18 07:00 03/20/18 07:00 Intake and Output: 03/20/18 03/20/18 06:59 18:59 Intake Total 110 Output Total 2400 Balance -2290 - Medications Medications: Current Medications Acetaminophen (Tylenol 325mg Tab) 650 mg PO Q6 PRN PRN Reason: Pain, moderate (4-7) Last Admin: 03/18/18 01:43 Dose: 650 mg Albuterol Sulfate (Albuterol 0.083% Inhal Christina (2.5 Mg/3 Ml) Ud) 3 mg IH RQ6 PRN PRN Reason: Shortness of Breath Aspirin (Ecotrin) 325 mg PO DAILY [facility] Last Admin: 03/19/18 09:05 Dose: 325 mg Carvedilol (Coreg) 3.125 mg PO BID [facility] Last Admin: 03/19/18 17:29 Dose: 3.125 mg Clotrimazole (Lotrimin 1%) 0 gm TOP BID [facility] Last Admin: 03/19/18 17:29 Dose: 1 appl Enoxaparin Sodium (Lovenox) 40 mg SC DAILY [facility] Last Admin: 03/19/18 09:06 Dose: 40 mg Furosemide (Lasix) 40 mg PO DAILY [facility] Last Admin: 03/19/18 09:06 Dose: 40 mg Ceftriaxone Sodium (Rocephin Iv 1 Gm Duplex) 50 mls @ 100 mls/hr IVPB Q12H [facility] PRN Reason: Protocol Last Admin: 03/20/18 05:40 Dose: 100 mls/hr Lactic Acid (Lac-Hydrin 12% Lotion (225 G)) 1 gm EXT DAILY [facility] Last Admin: 03/19/18 09:06 Dose: 1 gm Lactobacillus Acidophilus (Bacid Acidophilus) 1 cap PO BID [facility] Last Admin: 03/19/18 17:29 Dose: 1 cap Pantoprazole Sodium (Protonix Ec Tab) 40 mg PO DAILY [facility] Last Admin: 03/19/18 09:05 Dose: 40 mg Rosuvastatin Calcium (Crestor) 10 mg PO HS [facility] Last Admin: 03/19/18 21:33 Dose: 10 mg Tamsulosin HCl (Flomax) 0.4 mg PO DAILY [facility] Last Admin: 03/19/18 09:05 Dose: 0.4 mg - Labs Labs: 03/17/18 10:56 03/17/18 10:56
--- NOTE | 2018-03-20 09:14 | CP.PCM.PN ---
Subjective - Date & Time of Evaluation Date of Evaluation: 03/19/18 Time of Evaluation: 12:32 - Subjective Subjective: Patient is feeling much better. Able to ambulate with physical therapy. I spoke to the patient's family. Suggested to have a subacute rehab evaluation. Family agreed. We will plan for rehab. Currently on antibiotic. Bilateral leg edema improving. Skin changes noted. Suggested, and is awaiting for arterial Doppler Objective - Vital Signs/Intake and Output Vital Signs (last 24 hours): Temp Pulse Resp BP Pulse Ox 98.2 F 77 20 164/78 H 96 03/20/18 07:00 03/20/18 08:00 03/20/18 07:00 03/20/18 07:00 03/20/18 07:00 Intake and Output: 03/20/18 03/20/18 06:59 18:59 Intake Total 110 Output Total 2400 Balance -2290 - Medications Medications: Current Medications Acetaminophen (Tylenol 325mg Tab) 650 mg PO Q6 PRN PRN Reason: Pain, moderate (4-7) Last Admin: 03/18/18 01:43 Dose: 650 mg Albuterol Sulfate (Albuterol 0.083% Inhal Christina (2.5 Mg/3 Ml) Ud) 3 mg IH RQ6 PRN PRN Reason: Shortness of Breath Aspirin (Ecotrin) 325 mg PO DAILY [facility] Last Admin: 03/19/18 09:05 Dose: 325 mg Carvedilol (Coreg) 3.125 mg PO BID [facility] Last Admin: 03/19/18 17:29 Dose: 3.125 mg Clotrimazole (Lotrimin 1%) 0 gm TOP BID [facility] Last Admin: 03/19/18 17:29 Dose: 1 appl Enoxaparin Sodium (Lovenox) 40 mg SC DAILY [facility] Last Admin: 03/19/18 09:06 Dose: 40 mg Furosemide (Lasix) 40 mg PO DAILY [facility] Last Admin: 03/19/18 09:06 Dose: 40 mg Ceftriaxone Sodium (Rocephin Iv 1 Gm Duplex) 50 mls @ 100 mls/hr IVPB Q12H [facility] PRN Reason: Protocol Last Admin: 03/20/18 05:40 Dose: 100 mls/hr Lactic Acid (Lac-Hydrin 12% Lotion (225 G)) 1 gm EXT DAILY [facility] Last Admin: 03/19/18 09:06 Dose: 1 gm Lactobacillus Acidophilus (Bacid Acidophilus) 1 cap PO BID [facility] Last Admin: 03/19/18 17:29 Dose: 1 cap Pantoprazole Sodium (Protonix Ec Tab) 40 mg PO DAILY [facility] Last Admin: 03/19/18 09:05 Dose: 40 mg Rosuvastatin Calcium (Crestor) 10 mg PO HS [facility] Last Admin: 03/19/18 21:33 Dose: 10 mg Tamsulosin HCl (Flomax) 0.4 mg PO DAILY [facility] Last Admin: 03/19/18 09:05 Dose: 0.4 mg - Labs Labs: 03/17/18 10:56 03/17/18 10:56
[2018-03-20] MEDS: Pantoprazole 40 mg EC Tab PO SCH (09:26)
[2018-03-20] MEDS: Aspirin 325 mg EC Tablets PO SCH (09:26)
[2018-03-20] MEDS: Lactobacillus Acidophilus 500 MU Cap PO SCH ×2 (09:26→17:57)
[2018-03-20] MEDS: Enoxaparin 40 mg Syringe SC SCH (09:26)
[2018-03-20] MEDS: Ammonium Lactate 12% Lotion (225 g) EXT SCH (09:26)
[2018-03-20] MEDS: Clotrimazole 1% Cream(30 gm) TOP SCH ×2 (09:26→17:57)
--- NOTE | 2018-03-20 12:24 | CP.PCM.PN ---
Subjective - Date & Time of Evaluation Date of Evaluation: 03/20/18 Time of Evaluation: 12:22 - Subjective Subjective: Podiatry Progress Note - Dr. Shannon/Noah 87M seen and evaluated at bedside this AM for bilateral LE cellulitis. Patient daughter present at bedside. Patient reports lower extremity pain improving. Denies N/V/F/D/C/SOB. Offers no other complaints. Patient multipodus boots not in place Objective - Vital Signs/Intake and Output Vital Signs (last 24 hours): Temp Pulse Resp BP Pulse Ox 98.2 F 77 20 164/78 H 96 03/20/18 07:00 03/20/18 08:00 03/20/18 07:00 03/20/18 09:26 03/20/18 07:00 Intake and Output: 03/20/18 03/20/18 06:59 18:59 Intake Total 110 Output Total 2400 Balance -2290 - Medications Medications: Current Medications Acetaminophen (Tylenol 325mg Tab) 650 mg PO Q6 PRN PRN Reason: Pain, moderate (4-7) Last Admin: 03/18/18 01:43 Dose: 650 mg Albuterol Sulfate (Albuterol 0.083% Inhal Christina (2.5 Mg/3 Ml) Ud) 3 mg IH RQ6 PRN PRN Reason: Shortness of Breath Aspirin (Ecotrin) 325 mg PO DAILY [facility] Last Admin: 03/20/18 09:26 Dose: 325 mg Carvedilol (Coreg) 3.125 mg PO BID [facility] Last Admin: 03/20/18 09:26 Dose: 3.125 mg Clotrimazole (Lotrimin 1%) 0 gm TOP BID [facility] Last Admin: 03/20/18 09:26 Dose: 1 appl Enoxaparin Sodium (Lovenox) 40 mg SC DAILY [facility] Last Admin: 03/20/18 09:26 Dose: 40 mg Furosemide (Lasix) 40 mg PO DAILY [facility] Last Admin: 03/20/18 09:26 Dose: 40 mg Ceftriaxone Sodium (Rocephin Iv 1 Gm Duplex) 50 mls @ 100 mls/hr IVPB Q12H [facility] PRN Reason: Protocol Last Admin: 03/20/18 05:40 Dose: 100 mls/hr Lactic Acid (Lac-Hydrin 12% Lotion (225 G)) 1 gm EXT DAILY [facility] Last Admin: 03/20/18 09:26 Dose: 1 gm Lactobacillus Acidophilus (Bacid Acidophilus) 1 cap PO BID [facility] Last Admin: 03/20/18 09:26 Dose: 1 cap Pantoprazole Sodium (Protonix Ec Tab) 40 mg PO DAILY [facility] Last Admin: 03/20/18 09:26 Dose: 40 mg Rosuvastatin Calcium (Crestor) 10 mg PO HS [facility] Last Admin: 03/19/18 21:33 Dose: 10 mg Tamsulosin HCl (Flomax) 0.4 mg PO DAILY [facility] Last Admin: 03/20/18 09:26 Dose: 0.4 mg - Labs Labs: 03/17/18 10:56 03/17/18 10:56 - Constitutional Appears: Well, Non-toxic, No Acute Distress - Head Exam Head Exam: ATRAUMATIC - Extremities Exam Additional comments: VASC: DP and PT pulses nonpalpable. CFT <3 seconds to digits. Temperature gradient warm to warm, no significant increase in areas of erythema. Nonpitting edema present to bilateral LE, decreasing NEURO: Gross sensation diminished. DERM: Erythema noted to bilateral legs extending from ankle joint to midcalf, decreasing. No open lesions present. Severe xerosis noted to bilateral LE. ORTHO: Pain upon calf squeeze. Muscle strength 5/5 for all dorsiflexors, plantarflexors, inverters, and everters. - Neurological Exam Neurological Exam: Alert, Awake, Oriented x3 - Psychiatric Exam Psychiatric exam: Normal Affect, Normal Mood Assessment and Plan - Assessment and Plan (Free Text) Assessment: 87M with bilateral LE edema + erythema 2/2 acute cellulitis vs. CHF exacerbation Plan: Patient seen and evaluated Plan discussed with attending Dr. Zamora Bilateral LE venous duplex - negative for DVT Erythema improving, will continue to monitor Continue Ammonium Lactate lotion Continue abx - Ceftriaxone Pain control per primary team Podiatry will follow while patient is in house
--- NOTE | 2018-03-20 22:18 | CP.PCM.PN ---
Subjective - Date & Time of Evaluation Date of Evaluation: 03/20/18 Time of Evaluation: 07:30 - Subjective Subjective: Patient seen and evaluated No cardiac events noted Comfortable Objective - Vital Signs/Intake and Output Vital Signs (last 24 hours): Temp Pulse Resp BP Pulse Ox 98.2 F 57 L 20 117/72 97 03/20/18 15:22 03/20/18 15:22 03/20/18 15:22 03/20/18 15:22 03/20/18 15:22 Intake and Output: 03/20/18 03/21/18 18:59 06:59 Output Total 100 100 Balance -100 -100 - Medications Medications: Current Medications Acetaminophen (Tylenol 325mg Tab) 650 mg PO Q6 PRN PRN Reason: Pain, moderate (4-7) Last Admin: 03/18/18 01:43 Dose: 650 mg Albuterol Sulfate (Albuterol 0.083% Inhal Christina (2.5 Mg/3 Ml) Ud) 3 mg IH RQ6 PRN PRN Reason: Shortness of Breath Aspirin (Ecotrin) 325 mg PO DAILY [facility] Last Admin: 03/20/18 09:26 Dose: 325 mg Carvedilol (Coreg) 3.125 mg PO BID [facility] Last Admin: 03/20/18 17:57 Dose: 3.125 mg Clotrimazole (Lotrimin 1%) 0 gm TOP BID [facility] Last Admin: 03/20/18 17:57 Dose: 1 appl Enoxaparin Sodium (Lovenox) 40 mg SC DAILY [facility] Last Admin: 03/20/18 09:26 Dose: 40 mg Furosemide (Lasix) 40 mg PO DAILY [facility] Last Admin: 03/20/18 09:26 Dose: 40 mg Ceftriaxone Sodium (Rocephin Iv 1 Gm Duplex) 50 mls @ 100 mls/hr IVPB Q12H [facility] PRN Reason: Protocol Last Admin: 03/20/18 17:58 Dose: 100 mls/hr Lactic Acid (Lac-Hydrin 12% Lotion (225 G)) 1 gm EXT DAILY [facility] Last Admin: 03/20/18 09:26 Dose: 1 gm Lactobacillus Acidophilus (Bacid Acidophilus) 1 cap PO BID [facility] Last Admin: 03/20/18 17:57 Dose: 1 cap Pantoprazole Sodium (Protonix Ec Tab) 40 mg PO DAILY [facility] Last Admin: 03/20/18 09:26 Dose: 40 mg Rosuvastatin Calcium (Crestor) 10 mg PO HS [facility] Last Admin: 03/19/18 21:33 Dose: 10 mg Tamsulosin HCl (Flomax) 0.4 mg PO DAILY [facility] Last Admin: 03/20/18 09:26 Dose: 0.4 mg - Labs Labs: 03/17/18 10:56 03/17/18 10:56
[2018-03-21] MEDS: cefTRIAXone IV 1 gm in Dextros 50 ML IVPB SCH ×2 (05:25→17:26)
[2018-03-21 07:45] LABS: BASO # 0.1 K/uL (0.0-0.2); BASO % 0.7 % (0.0-2.0); EOS # 0.5 K/uL (0.0-0.7); EOS % 6.7 % (0.0-4.0); HEMOGLOBIN 11.6 g/dL (12.0-18.0); LYMPH # 2.4 K/uL (1.0-4.3); LYMPH % 29.3 % (20.0-40.0); MEAN CELL VOLUME 90.1 fL (80.0-94.0); MEAN CORPUSCULAR HEMOGLOBIN 31.4 pg (27.0-31.0); MEAN CORPUSCULAR HGB CONC 34.9 g/dL (33.0-37.0); MEAN PLATELET VOLUME 7.5 fL (7.2-11.7); MONO # 0.9 K/uL (0.0-0.8); MONO % 10.5 % (0.0-10.0); NEUT # 4.3 K/uL (1.8-7.0); NEUT % 52.8 % (50.0-75.0); RBC 3.69 Mil/uL (4.40-5.90); RED CELL DISTRIBUTION WIDTH 13.5 % (11.5-14.5); WHITE BLOOD COUNT 8.2 K/uL (4.8-10.8)
[2018-03-21 07:58] LABS: ALB/GLOB RATIO 0.8 (1.0-2.1); ALBUMIN 3.4 g/dL (3.5-5.0); ALT/SGPT 68 U/L (21-72); AST/SGOT 68 U/L (17-59); BLOOD UREA NITROGEN 27 mg/dL (9-20); CALCIUM 9.3 mg/dl (8.6-10.4); GFR AFRICAN-AMERICAN > 60; GFR NON-AFRICAN AMERICAN 57
[2018-03-21] MEDS: Enoxaparin 40 mg Syringe SC SCH (10:56)
[2018-03-21] MEDS: Pantoprazole 40 mg EC Tab PO SCH (10:57)
[2018-03-21] MEDS: Lactobacillus Acidophilus 500 MU Cap PO SCH ×2 (10:57→17:26)
[2018-03-21] MEDS: Aspirin 325 mg EC Tablets PO SCH (10:58)
[2018-03-21] MEDS: Clotrimazole 1% Cream(30 gm) TOP SCH ×2 (11:02→17:32)
[2018-03-21 16:29] VITALS: PULSE 52
[2018-03-21 17:04] VITALS: BP 126/87; TEMP 98.2; O2SAT 97
--- NOTE | 2018-03-21 17:24 | CP.PCM.PN ---
Subjective - Date & Time of Evaluation Date of Evaluation: 03/21/18 Time of Evaluation: 11:25 - Subjective Subjective: Patient seen today , states feels much better, leg pain improved , denies nay chest pain, sob, dizziness, head ache, fever, chills No overnigh t events reported by RN able to walk with PT today for short distances A FEBRILE labs- reviewed - stable Objective - Vital Signs/Intake and Output Vital Signs (last 24 hours): Temp Pulse Resp BP Pulse Ox 98.2 F 52 L 20 126/87 97 03/21/18 15:20 03/21/18 16:00 03/21/18 15:20 03/21/18 15:20 03/21/18 15:20 Intake and Output: 03/21/18 03/21/18 06:59 18:59 Output Total 350 Balance -350 - Medications Medications: Current Medications Acetaminophen (Tylenol 325mg Tab) 650 mg PO Q6 PRN PRN Reason: Pain, moderate (4-7) Last Admin: 03/18/18 01:43 Dose: 650 mg Albuterol Sulfate (Albuterol 0.083% Inhal Christina (2.5 Mg/3 Ml) Ud) 3 mg IH RQ6 PRN PRN Reason: Shortness of Breath Aspirin (Ecotrin) 325 mg PO DAILY [facility] Last Admin: 03/21/18 10:58 Dose: 325 mg Carvedilol (Coreg) 3.125 mg PO BID [facility] Last Admin: 03/21/18 10:57 Dose: 3.125 mg Clotrimazole (Lotrimin 1%) 0 gm TOP BID [facility] Last Admin: 03/21/18 11:02 Dose: 1 appl Enoxaparin Sodium (Lovenox) 40 mg SC DAILY [facility] Last Admin: 03/21/18 10:56 Dose: 40 mg Furosemide (Lasix) 40 mg PO DAILY [facility] Last Admin: 03/21/18 10:57 Dose: 40 mg Ceftriaxone Sodium (Rocephin Iv 1 Gm Duplex) 50 mls @ 100 mls/hr IVPB Q12H [facility] PRN Reason: Protocol Last Admin: 03/21/18 05:25 Dose: 100 mls/hr Lactic Acid (Lac-Hydrin 12% Lotion (225 G)) 1 gm EXT DAILY [facility] Last Admin: 03/20/18 09:26 Dose: 1 gm Lactobacillus Acidophilus (Bacid Acidophilus) 1 cap PO BID [facility] Last Admin: 03/21/18 10:57 Dose: 1 cap Pantoprazole Sodium (Protonix Ec Tab) 40 mg PO DAILY [facility] Last Admin: 03/21/18 10:57 Dose: 40 mg Rosuvastatin Calcium (Crestor) 10 mg PO HS [facility] Last Admin: 03/20/18 23:33 Dose: 10 mg Tamsulosin HCl (Flomax) 0.4 mg PO DAILY [facility] Last Admin: 03/21/18 10:57 Dose: 0.4 mg - Labs Labs: 03/21/18 07:11 03/21/18 07:11 Assessment and Plan - Assessment and Plan (Free Text) Assessment: A/P 87 yr old male with pmhx of Atrial Fibrillation, not on coag secondary to hx of GI bleed ,Benign Prostatic Hyperplasia, CHF, Diverticulitis, HTN, Hypercholesterolemia, Chronic Kidney Disease admitted with lower extremity swelling/ cellulitis DVT- LE- negative blood culte- Negative for 5 days arterial duplex done today - pending result Patient accepted at [facility] for rehab and family in agreement as per MARITZA Ruiz D/w Dr. Ventura cleared for discharge to [facility] today and Dr. Ventura will follow the patient at [facility] MARITZA will arrange transportation
--- NOTE | 2018-03-21 17:29 | CP.PCM.PN ---
Subjective - Date & Time of Evaluation Date of Evaluation: 03/21/18 Time of Evaluation: 17:27 - Subjective Subjective: Patient seen and evaluated PAD by arterial doppler No no healing ulcers or gangrane Will add Cilostazole 50 bid to ASA 81 daily Medical therapy now D/W patient and the daughter Objective - Vital Signs/Intake and Output Vital Signs (last 24 hours): Temp Pulse Resp BP Pulse Ox 98.2 F 52 L 20 126/87 97 03/21/18 15:20 03/21/18 16:00 03/21/18 15:20 03/21/18 15:20 03/21/18 15:20 Intake and Output: 03/21/18 03/21/18 06:59 18:59 Output Total 350 Balance -350 - Medications Medications: Current Medications Acetaminophen (Tylenol 325mg Tab) 650 mg PO Q6 PRN PRN Reason: Pain, moderate (4-7) Last Admin: 03/18/18 01:43 Dose: 650 mg Albuterol Sulfate (Albuterol 0.083% Inhal Christina (2.5 Mg/3 Ml) Ud) 3 mg IH RQ6 PRN PRN Reason: Shortness of Breath Aspirin (Ecotrin) 81 mg PO DAILY [facility] Carvedilol (Coreg) 3.125 mg PO BID [facility] Last Admin: 03/21/18 17:26 Dose: 3.125 mg Cilostazol (Pletal) 50 mg PO BID [facility] Clotrimazole (Lotrimin 1%) 0 gm TOP BID [facility] Last Admin: 03/21/18 11:02 Dose: 1 appl Enoxaparin Sodium (Lovenox) 40 mg SC DAILY [facility] Last Admin: 03/21/18 10:56 Dose: 40 mg Furosemide (Lasix) 40 mg PO DAILY [facility] Last Admin: 03/21/18 10:57 Dose: 40 mg Ceftriaxone Sodium (Rocephin Iv 1 Gm Duplex) 50 mls @ 100 mls/hr IVPB Q12H [facility] PRN Reason: Protocol Last Admin: 03/21/18 17:26 Dose: 100 mls/hr Lactic Acid (Lac-Hydrin 12% Lotion (225 G)) 1 gm EXT DAILY [facility] Last Admin: 03/20/18 09:26 Dose: 1 gm Lactobacillus Acidophilus (Bacid Acidophilus) 1 cap PO BID [facility] Last Admin: 03/21/18 17:26 Dose: 1 cap Pantoprazole Sodium (Protonix Ec Tab) 40 mg PO DAILY [facility] Last Admin: 03/21/18 10:57 Dose: 40 mg Rosuvastatin Calcium (Crestor) 10 mg PO HS [facility] Last Admin: 03/20/18 23:33 Dose: 10 mg Tamsulosin HCl (Flomax) 0.4 mg PO DAILY [facility] Last Admin: 03/21/18 10:57 Dose: 0.4 mg - Labs Labs: 03/21/18 07:11 03/21/18 07:11
[2018-03-21] MEDS ORDERED: Cilostazol 50 mg Tab UD PO SCH (18:00)
--- NOTE | 2018-03-22 11:56 | VASCLAB ---
Date of service: 03/21/2018 STUDY DESCRIPTION: HISTORY: Claudication PRIORS: None. TECHNIQUE: Pulse volume recording waveforms and segmental pressures of bilateral lower extremities at multiple levels were obtained. Ankle Brachial Indices (ABIs) were calculated. Report prepared by MENDOZA Hawthorne, RVT RIGHT LOWER EXTREMITY: * Brachial artery: Pressure - 164 mmHg. * High thigh: Pressure - mmHg: Ratio - : PVR waveform - * Low thigh: Pressure - mmHg: Ratio - PVR waveform: Reduced * Calf: Pressure - mmHg: Ratio - PVR waveform: Reduced * Posterior tibial Artery: Pressure - mmHg: Ratio - PVR waveform: Reduced * Dorsalis pedis Artery: Pressure - 133 mmHg: Ratio - 0.80 PVR waveform: Reduced * Great toe: Pressure - mmHg: Ratio - PVR waveform: Ankle brachial index (JYOTI): 0.80 LEFT LOWER EXTREMITY: * Brachial artery: Pressure - 166 mmHg. * High thigh: Pressure - mmHg: Ratio - : PVR waveform - * Low thigh: Pressure - mmHg: Ratio - PVR waveform: Reduced * Calf: Pressure - mmHg: Ratio - PVR waveform: Reduced * Posterior tibial Artery: Pressure - mmHg: Ratio - PVR waveform: Reduced * Dorsalis pedis Artery: Pressure - 127 mmHg: Ratio - 0.77 PVR waveform: Reduced * Great toe: Pressure - mmHg: Ratio - PVR waveform: Ankle brachial index (JYOTI): 0.77 OTHER FINDINGS: Right: Left: IMPRESSION: Right: This exam reveals mildly decreased perfusion of the right lower extremity, noted from the iliac to distal small artery levels. Left: This exam reveals mildly decreased perfusion of the left lower extremity, noted from the iliac to distal small artery levels.
--- NOTE | 2018-03-22 12:29 | CP.PCM.DIS ---
Provider - Provider Date of Admission: 03/15/18 11:49 Attending physician: Grupo Ventura MD Time Spent in preparation of Discharge (in minutes): 45 Hospital Course - Lab Results Lab Results: Micro Results 03/15/18 10:30 Blood Blood Culture - Final NO GROWTH AFTER 5 DAYS 03/15/18 10:30 Blood Gram Stain - Final TEST NOT PERFORMED 03/15/18 11:00 Blood Blood Culture - Final NO GROWTH AFTER 5 DAYS 03/15/18 11:00 Blood Gram Stain - Final TEST NOT PERFORMED Most Recent Lab Values WBC 8.2 K/uL (4.8-10.8) 03/21/18 07:11 RBC 3.69 Mil/uL (4.40-5.90) L 03/21/18 07:11 Hgb 11.6 g/dL (12.0-18.0) L 03/21/18 07:11 Hct 33.2 % (35.0-51.0) L 03/21/18 07:11 MCV 90.1 fL (80.0-94.0) 03/21/18 07:11 MCH 31.4 pg (27.0-31.0) H 03/21/18 07:11 MCHC 34.9 g/dL (33.0-37.0) 03/21/18 07:11 RDW 13.5 % (11.5-14.5) 03/21/18 07:11 Plt Count 177 K/uL (130-400) 03/21/18 07:11 MPV 7.5 fL (7.2-11.7) 03/21/18 07:11 Neut % (Auto) 52.8 % (50.0-75.0) 03/21/18 07:11 Lymph % (Auto) 29.3 % (20.0-40.0) 03/21/18 07:11 [place] % (Auto) 10.5 % (0.0-10.0) H 03/21/18 07:11 Eos % (Auto) 6.7 % (0.0-4.0) H 03/21/18 07:11 Baso % (Auto) 0.7 % (0.0-2.0) 03/21/18 07:11 Neut # (Auto) 4.3 K/uL (1.8-7.0) 03/21/18 07:11 Lymph # (Auto) 2.4 K/uL (1.0-4.3) 03/21/18 07:11 [place] # (Auto) 0.9 K/uL (0.0-0.8) H 03/21/18 07:11 Eos # (Auto) 0.5 K/uL (0.0-0.7) 03/21/18 07:11 Baso # (Auto) 0.1 K/uL (0.0-0.2) 03/21/18 07:11 Sodium 143 mmol/L (132-148) 03/21/18 07:11 Potassium 3.7 mmol/L (3.6-5.2) 03/21/18 07:11 Chloride 104 mmol/L (98-107) 03/21/18 07:11 Carbon Dioxide 30 mmol/L (22-30) 03/21/18 07:11 Anion Gap 13 (10-20) 03/21/18 07:11 BUN 27 mg/dL (9-20) H 03/21/18 07:11 Creatinine 1.2 mg/dL (0.8-1.5) 03/21/18 07:11 Est GFR ( Amer) > 60 03/21/18 07:11 Est GFR (Non-Af Amer) 57 03/21/18 07:11 Random Glucose 96 mg/dL (75-110) 03/21/18 07:11 Calcium 9.3 mg/dl (8.6-10.4) 03/21/18 07:11 Phosphorus 2.7 mg/dL (2.5-4.5) 03/21/18 07:11 Magnesium 1.9 mg/dL (1.6-2.3) 03/21/18 07:11 Total Bilirubin 0.4 mg/dL (0.2-1.3) 03/21/18 07:11 AST 68 U/L (17-59) H D 03/21/18 07:11 ALT 68 U/L (21-72) 03/21/18 07:11 Alkaline Phosphatase 72 U/L (38-126) 03/21/18 07:11 Troponin I 0.0160 ng/mL (0.00-0.120) 03/15/18 10:58 NT-Pro-B Natriuret Pep 924 pg/mL (0-900) H 03/15/18 10:58 Total Protein 7.7 g/dL (6.3-8.3) 03/21/18 07:11 Albumin 3.4 g/dL (3.5-5.0) L 03/21/18 07:11 Globulin 4.3 gm/dL (2.2-3.9) H 03/21/18 07:11 Albumin/Globulin Ratio 0.8 (1.0-2.1) L 03/21/18 07:11 - Hospital Course Hospital Course: Chief complaint: Patient came to the office today with worsening bilateral leg swelling, weeping edema, unable to walk, pain in the legs.And I sent the patient to the emergency room because of a suspected cellulitis HPI: 87-year-old male with a history of intermittent atrial fibrillation, congestive heart failure, diverticulosis, history of hypertension, hypercholesterolemia, BPH, arthritis. Patient has a history of massive GI bleed in 2016. Patient is currently not on any anticoagulation because of the GI bleed, currently taking aspirin. Patient came to the office a few days ago weeks ago, with gradually worsening bilateral leg swelling. I advised the patient at that time, to increase the Lasix. In spite of that recently he started having increasing leg swelling. [place] a week at least the patient was feeling more depressed, because of the ongoing pain in the legs, associate with the leg swelling, itching and also feeling weakness, tiredness, fatigability, and chills. No fever noted. For the last 2 to days he started noticing bruising in the legs both sides, more on the right side. Increasing redness noted in the legs, associated with the pain and tenderness. Patient is poorly eating. He has no diarrhea. Denies any chest pain. No shortness of breath or cough noted. Past medical history: Intermittent atrial fibrillation, CHF, diverticulosis, hypertension, high cholesterol, BPH and arthritis. Allergies: No known drug allergy Personal history: Nonsmoker nonalcoholic lives with family Surgical history nonspecific. 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 Family is concerned about sundowning in the evening time. Minimal distress noted. Denies any chest pain. Bilateral leg swelling. Worsening now. Also associate with the pain and redness Vital signs reviewed No neck vein distention noted Chest good air entry bilaterally, no wheezing or rales noted CVS regular heart sound, no murmur noted Abdomen soft, nontender. Patient has a bilateral leg edema both sides more on the right side. Multiple excoriation noted, skin peeling noted. He is also having increasing redness. Losing discharge noted in the right leg mostly. Also minimal discharge in the left leg associate with excoriation and redness. Edema significantly noted POTTER OR CERAMIC ARTIST alert awake oriented -3, no functional neurological deficit Labs Elevated proBNP X-ray congestive changes Assessment and recommendation: 87 male with history of atrial fibrillation, CHF, diverticulosis hypertension and hypercholesteremia BPH and arthritis. Patient has possibly acute cellulitis involving the bilateral lower extremities , associate with the leg edema and venous insufficiency. Underlying congestive heart failure with mild exacerbation cannot be ruled out. We will keep the leg elevated. Cellulitis, we will start the patient on antibiotic Rocephin twice a day. Podiatry evaluation in consultation, cardiology evaluation. Physical therapy. Wound evaluation. DVT and GI prophylaxis will follow the patient. Patient is not on anticoagulation secondary to history of GI bleed in the past Patient admitted to the hospital with acute decompensated diastolic heart failure. Currently better. He started Lasix. Leg swelling got better. As the patient has a cellulitis involving the left lower leg extremity antibiotic started. Dental Chair Assembler evaluation consulted. Patient is currently receiving Lotrisone, and Lac-Hydrin. He also suggested for arterial Doppler Arterial Doppler showing evidence of possibly reduced JYOTI both legs, more on the left leg. I explained to the family, given the advanced nature of the disease. And also given the age I suggested for the comfort care. We will add cilostazol. He will continue antibiotic 2 more days. He will be discharged rehab We will follow the patient. Final diagnosis: Cellulitis Acute Acute decompensated diastolic heart failure. Atrial fibrillation intermittent. Depression. Hypertension. GI bleed. Peripheral vascular disease for conservative treatment only. Discharge Exam - Head Exam Head Exam: ATRAUMATIC Discharge Plan - Follow Up Plan Condition: FAIR Disposition: TRANSF TO SNF Instructions: Heart Healthy Diet, Heart Failure, Adult (DC), Cellulitis (Skin Infection), Adult (DC) Additional Instructions: PLEASE ADMIT PATIENT UNDER DR. VENTURA SERVICE- CALL DR. VENTURA UPON PATIENT ARRIVAL TO THE FACILITY PLEASE DO LABS, CBC, BMP Q WEEKLY PLEASE CONTINUE ROCEPHIN X 1 MORE DAY(03/22/18) THEN CALL DR. VENTURA TO SWITCH TO PO ANTIBIOTICS CONTINUE LE WOUND CARE CONTINUE MEDICATION PER MED. REC. further management as per Dr. Ventura Referrals: Grupo Ventura MD [Staff Provider] -
== END 2018-03-21 18:18 | DRG 291 ==
LOC: C.ER 10:01 → C.9E 11:49 → C.6T 14:06
PROVIDERS: ADMIT Internal Medicine; ATTEND Internal Medicine
DX: I13.0 Hypertensive heart and chronic kidney disease with heart failure and stage 1 through stage 4 chronic kidney disease, or unspecified chronic kidney disease (principal); I50.33 Acute on chronic diastolic (congestive) heart failure; L03.115 Cellulitis of right lower limb; Q21.1 Atrial septal defect; L03.116 Cellulitis of left lower limb; I27.20 Pulmonary hypertension, unspecified; I48.91 Unspecified atrial fibrillation; N18.9 Chronic kidney disease, unspecified; I08.0 Rheumatic disorders of both mitral and aortic valves; N40.0 Benign prostatic hyperplasia without lower urinary tract symptoms; M19.90 Unspecified osteoarthritis, unspecified site; E78.5 Hyperlipidemia, unspecified; E78.00 Pure hypercholesterolemia, unspecified; I25.2 Old myocardial infarction; Z87.440 Personal history of urinary (tract) infections; Z87.891 Personal history of nicotine dependence; Z86.718 Personal history of other venous thrombosis and embolism; Z87.19 Personal history of other diseases of the digestive system; Z79.82 Long term (current) use of aspirin; Z91.81 History of falling; Z98.42 Cataract extraction status, left eye